=== PATIENT | female | born 1995 | race Two or more races ===

== ENCOUNTER 2024-12-09 09:49 | Emergency (ER) | payer MEDICAID, SELFPAY ==
[2024-12-09 10:17] VITALS: BMI 20.2
[2024-12-09 10:18] VITALS: BP 109/61; PULSE 81; RESP 19; TEMP 36.9; O2SAT 98
--- NOTE | 2024-12-09 10:22 | EKG_ITS ---
[facility] Test Date: 2024-12-09 Pat Name: LILLIAN JIMENEZ Department: Room: - Gender: Female [employer] Dean: : 1995 Requested By: Gómez Trinidad (HERNAN) Order Number: [id number] Reading MD: Gómez Trinidad (HERNAN) Measurements Intervals Cando Rate: 81 P: 78 ID: 140 QRS: 86 QRSD: 80 T: 46 QT: 343 QTc: 399 Interpretive Statements SINUS RHYTHM POSSIBLE RIGHT VENTRICULAR CONDUCTION DELAY [RSR (QR) IN V1/V2] No previous ECG available for comparison /store/S0/[id number]
--- NOTE | 2024-12-09 10:22 | PD.EDRME ---
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
--- NOTE | 2024-12-09 10:35 | EDNOTE_ITS ---
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 RANGEL MAIN ED EVALUATION: 29 year old female with no past medical history presents to the Emergency Department with complaint of fainting yesterday while standing. She states that her personal trainer was there and helped her so no fall or injuries reported. She saw her PCP today and had an abnormal EKG and was sent here for further evaluation. She reports heavy periods. She states that yesterday when she had her fainting episode she felt tachycardic and hot. Related Data Previous Rx's ?Medication ?Instructions ?Recorded doxycycline hyclate 100 mg capsule 100 mg PO Q12H #20 caps 03/14/18 ibuprofen 400 mg tablet 400 mg PO Q6H PRN pain #20 t abs 03/14/18 vitamin#30 30 mg iron-10 1 cap PO DAILY #30 c aps 12/09/24 mg iron-folic acid 1 mg-omg3 capsule Allergies Allergy/AdvReac Type Severity Reaction Status Date / Time Penicillins Allergy Unknown UNKNOWN Verified 03/14/18 17:02 Review of Systems Review of Systems Systems Reviewed: All systems reviewed, normal except as documented Past Medical History Social History SMOKING STATUS: Never smoker SUBSTANCE USE: does not use ALCOHOL: Never ED Exam Narrative Physical exam: GENERAL APPEARANCE: alert and oriented x 4, well-developed, well-nourished, no acute distress VITALS: All vitals were reviewed and the pulse ox is 98% on room air, which is normal according to my interpretation. HEENT: Normocephalic, atraumatic; pupils equal, round, reactive to light; EOMI; mucous membranes pink, moist; oropharynx clear NECK: Supple LUNGS: CTABL; no wheezes, no rales, no rhonchi HEART: Regular rate, regular rhythm; normal S1, S2; no murmurs ABDOMEN: non distended; normal BS; soft, no tenderness, no guarding, no rebound; no masses, no organomegaly, no hernia BACK: no CVA tenderness EXTREMITIES: atraumatic; no edema NEUROLOGIC: awake; alert and oriented x4; cranial nerves II-XII grossly intact; no focal sensory or motor deficits PSYCHIATRIC: appropriate mood and affect SKIN: warm, dry, normal color; no rashes Course Quality Measures none Orders Category Date Time Status EKG (ED ONLY) *Do not use* NOW Care 12/09/24 10:22 Completed EKG (ED Only) Stat Exams 12/09/24 10:22 Draft Beta HCG,Quantitative Stat Lab 12/09/24 10:46 Completed CBC Stat Lab 12/09/24 10:46 Completed Comprehensive Metabolic Panel Stat Lab 12/09/24 10:46 Completed Drug Screen,Urine Stat Lab 12/09/24 10:54 Completed HCG Qualitative,Urine Stat Lab 12/09/24 10:54 Completed TSH [Thyroid Stimulating Hormone] Stat Lab 12/09/24 10:46 Completed Troponin I Stat Lab 12/09/24 10:46 Completed Urinalysis Stat Lab 12/09/24 10:54 Completed Vital Signs Vital signs: Vital Signs Temperature 98.5 F 12/09/24 10:18 Pulse Rate 81 12/09/24 10:18 Respiratory Rate 19 12/09/24 10:18 Blood Pressure 109/61 12/09/24 10:18 Pulse Oximetry (%) 98 12/09/24 10:18 Oxygen Delivery Method Room Air 12/09/24 10:18 [facility] Patient data External records reviewed:: [facility] previous records (Reviewed last ED visit dated 03/14/18, discharged with the following: Cat bite) Clinical information provided by:: patient Social determinants that could affect healthcare access:: none Patient has the following chronic illnesses:: Denies any PMHx, surgeries, daily medications, or known allergies. How is presenting disease/condition affected by chronic disease/condition?: no chronic disease Evaluation data The following diagnostics were reviewed and interpreted by me:: lab results, radiology exam(s) and EKG tracing(s) Lab and/or radiology exams considered but not ordered:: none Interpretation Summary: EKG#1: EKG at 1025 hours. Interpreted by me: sinus rhythm, rate 81, no acute ischemic changes Medications Medications considered but not ordered:: none Medication administrations:: see above if any Consultations Consultation(s) initiated? (list below): No Diagnosis Differential Diagnosis ED Complaint MDM: dehydration, electrolyte imbalance, syncope Most likely diagnosis given after review of the tests above:: Near syncope Admission Indicated Admission indicated?: not indicated Explain why admission is indicated or not indicated:: Patient has no emergent abnormalities on his studies and can be managed on an outpatient basis. Admission Request Was there a request for admission?: No Disposition Plan Disposition Plan: Discharge Discharge Attestation Discharge Attestation: The patient and all family members were given an opportunity to ask questions and understood the discharge instructions. Discharge instructions specifically effects, indications for sooner follow up or return to the emergency department, and the expected course of current diagnosis. Patient condition: Stable Medical Decision Making MDM Narrative MDM Narrative: IJennifer am scribing for and in the presence of Dr. Rangel. Differential Diagnosis Differential Diagnosis: dehydration, electrolyte imbalance, syncope Lab Data 12/09/24 10:46 12/09/24 10:46 Labs: Lab Results 12/09/24 12/09/24 Range/Units 10:46 10:54 WBC 10.9 (3.6-11.0) Thou/mm3 RBC 4.68 (4.00-5.20) Miln/mm3 Hgb 13.9 (12.0-16.0) g/dL Hct 40.0 (36.0-46.0) % MCV 86 (80-100) fL MCH 29.7 (25.0-35.0) pg MCHC 34.8 (31.0-37.0) g/dl RDW Std Deviation 38.5 (36.4-46.3) fL Plt Count 296 (140-440) Thou/mm3 Neut % (Auto) 72 (37-80) % Lymph % (Auto) 20 (10-50) % [place] % (Auto) 6 (0-12) % Eos % (Auto) 1 (0-10) % Baso % (Auto) 1 (0-2.5) % Neut # (Auto) 7.8 H (1.8-7.7) Thou/mm3 Lymph # (Auto) 2.1 (1.0-4.8) Thou/mm3 [place] # (Auto) 0.7 (0.0-0.8) Thou/mm3 Eos # (Auto) 0.1 (0.0-0.5) Thou/mm3 Baso # (Auto) 0.1 (0.0-0.2) Thou/mm3 Immature Gran # (Auto) 0.04 H (0.00-0.00) Thou/mm3 Absolute Nucleated RBC 0.00 (0.00-0.00) Thou/mm3 Immature Gran % 0 (0-0) % Nucleated RBC % 0 (0) /100 WBC Sodium 135 L (136-145) mMol/L Potassium 3.6 (3.4-5.1) mMol/L Chloride 101 (98-107) mMol/L Carbon Dioxide 25.6 (20.0-31.0) mMol/L Anion Gap 8 (7-16) BUN 7 L (9-23) mg/dL Creatinine 0.6 (0.6-1.3) mg/dL Estim Creat Clear Calc 109.4 (>60) mL/min eGFR > 60 (60 - ) See Note BUN/Creatinine Ratio 12 (12-20) Ratio Glucose 89 (74-106) mg/dL Calculated Osmolality 267 L (275-295) Calcium 9.1 (8.3-10.6) mg/dL Corrected Calcium 9.1 (8.5-10.1) mg/dL Total Bilirubin 0.8 (0.3-1.2) mg/dL AST 17 (0-34) U/L ALT 13 (10-49) U/L Alkaline Phosphatase 40 L (46-116) U/L Troponin I < 0.002 (0.0-0.045) ng/mL Total Protein 7.4 (5.7-8.2) gm/dL Albumin 4.6 (3.5-5.0) gm/dL Globulin 2.8 (2.3-3.5) gm/dL Albumin/Globulin Ratio 1.6 (1.2-2.2) TSH 0.91 (0.55-4.78) uIU/mL Beta HCG, Quant [id number] (<5.0) mIU/mL Ur Collection Type Clean Catch Urine Color Lt-Yellow (Lt Yel-Yel) Urine Clarity Clear (Clear/Hazy) Urine pH 6.0 (5.0-7.0) Ur Specific Patten 1.020 (1.001-1.035) Urine Protein Negative (Neg - Trace) Urine Glucose (UA) Negative (Negative) Urine Ketones Negative (Negative) Urine Blood Negative (Negative) Urine Nitrite Negative (Negative) Urine Bilirubin Negative (Negative) Urine Urobilinogen (Auto) Negative (0.0-1.0) mg/dL Ur Leukocyte Esterase Negative (Negative) Urine RBC 2 (0-3) /hpf Urine WBC 1 (0-5) /hpf Ur Squamous Epith Cells 2 (0-5) /hpf Urine Bacteria None (None) Urine HCG, Qual Positive Urine Opiates Screen Negative (Negative) Urine Fentanyl Screen Negative (Negative) Ur Barbiturates Screen Negative (Negative) U Amphetamin/Meth Scrn Negative (Negative) U Benzodiazepines Scrn Negative (Negative) U Cocaine Metab Screen Negative (Negative) U Marijuana (THC) Screen Negative (Negative) Discharge Plan Plan Patient Disposition: HOME (Self Care) Prescriptions/Referrals Prescriptions/Med Rec: New PNV #[id number] 30 mg iron-10 mg iron-1 mg capsule 1 cap PO DAILY Qty: 30 0RF No Action doxycycline hyclate 100 mg capsule 100 mg PO Q12H Qty: 20 0RF ibuprofen 400 mg tablet 400 mg PO Q6H PRN (Reason: pain) Qty: 20 0RF Referrals: Bret Norwood MD [Primary Care Provider] - In 1 week Problem List Clinical Impression: Near syncope, Patient/Caregiver Discharge Instructions Education Materials: What Is Care?, Your First Trimester ..., First Trimester Additional Instructions: Take vitamins with folic acid daily. Follow up for referral to OB for care. Print Language: Azeri Stand Alone Forms: Shaniqua Award Info., Patient Portal Info Letter
[2024-12-09 10:58] LABS: Collection Type, Urine Clean Catch
[2024-12-09 11:03] LABS: Bilirubin,Urine Negative (Negative); Blood,Urine Negative (Negative); Clarity,Urine Clear (Clear/Hazy); Color,Urine Lt-Yellow (Lt Yel-Yel); Glucose, Urine Negative (Negative); Ketones,Urine Negative (Negative); Leukocyte Esterase,Urine Negative (Negative); Nitrite,Urine Negative (Negative); Protein,Urine Negative (Neg - Trace); RBC,Urine 2 /hpf (0-3); Squamous Epithelial Cell,Urine 2 /hpf (0-5); Urobilinogen,Urine Negative mg/dL (0.0-1.0); WBC,Urine 1 /hpf (0-5)
[2024-12-09 11:07] LABS: Basophils # (Auto) 0.1 Thou/mm3 (0.0-0.2); Basophils % (Auto) 1 % (0-2.5); Eosinophils # (Auto) 0.1 Thou/mm3 (0.0-0.5); Eosinophils % (Auto) 1 % (0-10); Hemoglobin 13.9 g/dL (12.0-16.0); Immature Granulocytes % (Auto) 0 % (0-0); Immature Granulocytes Auto 0.04 Thou/mm3 (0.00-0.00); Lymphocytes # (Auto) 2.1 Thou/mm3 (1.0-4.8); Lymphocytes % (Auto) 20 % (10-50); Mean Corpuscular HGB Conc 34.8 g/dl (31.0-37.0); Mean Corpuscular Hemoglobin 29.7 pg (25.0-35.0); Mean Corpuscular Volume 86 fL (80-100); Monocytes # (Auto) 0.7 Thou/mm3 (0.0-0.8); Monocytes % (Auto) 6 % (0-12); Neutrophils # (Auto) 7.8 Thou/mm3 (1.8-7.7); Neutrophils % (Auto) 72 % (37-80); Nucleated Red Blood Cell % 0 /100 WBC (0); Platelet Count 296 Thou/mm3 (140-440); RDW Standard Deviation 38.5 fL (36.4-46.3); Red Blood Count 4.68 Miln/mm3 (4.00-5.20); White Blood Count 10.9 Thou/mm3 (3.6-11.0)
[2024-12-09 11:07] LABS: HCG Qualitative,Urine Positive
[2024-12-09 11:09] LABS: Amphetamine/Methamp Scrn,U Negative (Negative); Barbiturate Screen,Urine Negative (Negative); Benzodiazepines Screen,Urine Negative (Negative); Benzoylecgonine Screen, Ur Negative (Negative); Fentanyl Screen,Urine Negative (Negative); Opiate Screen,Urine Negative (Negative); THC Screen,Urine Negative (Negative)
[2024-12-09 11:38] LABS: Alanine Aminotransferase 13 U/L (10-49); Albumin, Serum 4.6 gm/dL (3.5-5.0); Albumin/Globulin Ratio 1.6 (1.2-2.2); Alkaline Phosphatase 40 U/L (46-116); Anion Gap 8 (7-16); Aspartate Amino Transferase 17 U/L (0-34); BUN/Creatinine Ratio 12 Ratio (12-20); Bilirubin,Total 0.8 mg/dL (0.3-1.2); Blood Urea Nitrogen 7 mg/dL (9-23); Calcium 9.1 mg/dL (8.3-10.6); Calcium (Corrected) 9.1 mg/dL (8.5-10.1); Carbon Dioxide 25.6 mMol/L (20.0-31.0); Chloride 101 mMol/L (98-107); Creatinine (Component) 0.6 mg/dL (0.6-1.3); Estimated Creatinine Clearance 109.4 mL/min (>60); Globulin 2.8 gm/dL (2.3-3.5); Glucose 89 mg/dL (74-106); Osmolality,Calculated 267 (275-295); Potassium 3.6 mMol/L (3.4-5.1); Sodium 135 mMol/L (136-145); Thyroid Stimulating Hormone 0.91 uIU/mL (0.55-4.78); Total Protein 7.4 gm/dL (5.7-8.2); Troponin I < 0.002 ng/mL (0.0-0.045); eGFR > 60 See Note
[2024-12-09 13:22] LABS: Beta HCG,Quantitative 163642 mIU/mL (<5.0)
== END 2024-12-09 14:58 | disposition home or self-care (01) ==
PROVIDERS: Nurse Practitioner Primary Care; Emergency Provider Emergency Medicine; PCP Family Medicine
DX: R55 Syncope and collapse (principal); Z33.1 Pregnant state, incidental
CPT/HCPCS: 36415; 80053; 80307; 81001; 81025; 84443; 84484; 84702; 85025; 93005; 99283

== ENCOUNTER → 2025-01-21 | Outpatient (CLI) | payer MEDICAID, SELFPAY ==
[2025-01-21 13:20] LABS: Basophils # (Auto) 0.1 Thou/mm3 (0.0-0.2); Basophils % (Auto) 1 % (0-2.5); Eosinophils # (Auto) 0.1 Thou/mm3 (0.0-0.5); Eosinophils % (Auto) 1 % (0-10); Hemoglobin 11.9 g/dL (12.0-16.0); Immature Granulocytes % (Auto) 0 % (0-0); Immature Granulocytes Auto 0.04 Thou/mm3 (0.00-0.00); Lymphocytes # (Auto) 1.8 Thou/mm3 (1.0-4.8); Lymphocytes % (Auto) 18 % (10-50); Mean Corpuscular Hemoglobin 30.9 pg (25.0-35.0); Mean Corpuscular Volume 88 fL (80-100); Monocytes # (Auto) 0.6 Thou/mm3 (0.0-0.8); Monocytes % (Auto) 6 % (0-12); Neutrophils # (Auto) 7.5 Thou/mm3 (1.8-7.7); Neutrophils % (Auto) 75 % (37-80); Nucleated Red Blood Cell % 0 /100 WBC (0); Platelet Count 211 Thou/mm3 (140-440); Red Blood Count 3.85 Miln/mm3 (4.00-5.20)
[2025-01-21 13:31] LABS: Glucose Estimated Average 94 mg/dL (80-131); Hemoglobin A1C 4.9 % Hgb (4.8-6.0)
[2025-01-21 13:39] LABS: Thyroid Stimulating Hormone 1.04 uIU/mL (0.55-4.78)
[2025-01-21 14:03] LABS: Syphilis Nonreactive (Nonreactive)
[2025-01-21 14:10] LABS: Hepatitis B Surface Antigen Non Reactive (Non React); Hepatitis C Antibody Non Reactive (Non React); Rubella, IgG Antibody Reactive (Immune)
[2025-01-21 16:01] LABS: Chlamydia trachomatis PCR Negative (Not Detect); Neisseria Gonorrhoeae DNA PCR Negative (Not Detect); Trichomonas Negative (Negative)
== END | disposition home or self-care (01) ==
LOC: COPL 12:29
PROVIDERS: PCP Family Medicine; Referring Provider Obstetrics & Gynecology; Visit Provider Obstetrics & Gynecology
DX: Z34.90 Encounter for supervision of normal pregnancy, unspecified, unspecified trimester (principal); Z3A.11 11 weeks gestation of pregnancy
CPT/HCPCS: 36415; 83036; 84443; 85025; 86762; 86780; 86803; 86850; 86900; 86901; 87086; 87340; 87491; 87591; 87661

== ENCOUNTER 2025-02-04 09:21 | Outpatient (AMB) | payer MEDICAID, SELFPAY ==
[2025-02-04 09:29] VITALS: BP 109/69; PULSE 99; RESP 17; TEMP 36.6; O2SAT 98; BMI 21.8
--- NOTE | 2025-02-04 09:29 | OBCLNT_ITS ---
Vital Signs 02/04/25 09:29 Height 1.57 m Height Method Stated Weight 54.204 kg Weight Measurement Method Standing Scale BMI 21.8 BP 109/69 Blood Pressure Source Automatic Cuff Blood Pressure Location Right Upper Arm Position Supine Respiration 17 Pulse 99 Pulse Source Monitor Temp 97.9 F Temp Source Temporal Artery Scan Pulse Oximetry (%) 98 Oxygen Delivery Method Room Air Allergies/Home Meds Allergies & Medications Allergies Penicillins Allergy (Mild, Verified 02/04/25 09:30) HIVES Medication Reconciliation vitamin#30 30 mg iron-10 mg iron-folic acid 1 mg-omg3 capsule 1 cap PO DAILY #30 caps 12/09/24 [Rx Confirmed 02/04/25] Intake Visit Data Collection New Patient or Established: Established Patient (seen at [facility] within 3 years) Reason for Visit:: OBC Seen by Clinical Staff ONLY (RN/MA): No Fire Prevention Research Engineer Required: No Do You Feel Safe at Home: Yes Authorities Contacted: N/A PCP or OBGYN visit in last 3 months: Yes Date of Last PCP or OBGYN visit: 01/07/25 Hx Now: Yes Are you currently on any form of Control: No Pain Present Currently: No Pain Scale Used: Duke-Stone/Numerical Pain scale:: 0 Smoking Status Smoking Status: Never smoker Questionnaires Covid-19 Vaccine Questionnaire Has patient been vacinated for Covid-19 Have you been vacinated for Covid-19: Yes PHQ-9 PHQ-2 Over the last 2 weeks, how often have you been bothered by any of the following problems? 1. Little interest or pleasure in doing things: not at all 2. Feeling down, depressed, or hopeless: not at all Total score: 0 PHQ-9 3. Trouble falling or staying asleep, or sleeping too much: Not at all 4. Feeling tired or having little energy: Not at all 5. Poor appetite or overeating: Not at all 6. Feeling bad about yourself - or that you are a failure or have let yourself or your family down: Not at all 7. Trouble concentrating on things, such as reading the newspaper or watching television: Not at all 8. Moving or speaking so slowly that other people could have noticed? - Or the opposite - being so fidgety or restless that you have been moving around a lot more than usual: not at all 9. Thoughts that you would be better off or of hurting yourself in some way: Not at all Total score: 0 If you checked off any problems, how difficult have these problems made it for you to do your work, take care of things at home, or get along with other people?: not difficult at all Source: Developed by Drs. Rd Xavier, Moni Moody, Mariano Bridges and colleagues, with an educational thalia from [employer]. Depression screen completed yes Social History Living Situation History Lives With: Family Housing: House Housing Other:: Father of the baby 29 Derrick. 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 OB Ultrasound Indication Indication: The patient is a 29 y/o LMP 10/19/24 EDC 07/26/25. Care OB Visit Log OB Flowsheet Initial Weight: 50.49 kg Date -?-?-?-?-?-?-?-?-?-?-?-?- EGA Weight BP Alb Glu CTX Pres Fundal ht FHR Mov Dilation Station Effacement Hx Notes Visit Note 01/07/25 -?-?-?-?-?-?-?-?-?-?-?-?- 11w 3d 50.49 kg (+0 g) 109/61 150 New OB visit. Protein and glucose negative in the urine 02/04/25 -?-?-?-?-?-?-?-?-?-?-?-?- 15w 3d 54.204 kg (+3714.288 g) 109/69 150 No FM Declines NIPT. SS [facility] Calculator Estimated Delivery Date Method Current WG Current Estimate 07/26/25 Ultrasound #1 15w 3d Other Estimates 07/26/25 LMP (Certain) 15w 3d Comments: LMP 10/19/2024. EDC 07/26/2025. 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 Expected Delivery Route/Plan Anticipate Office Procedures OB Clinic LOC & Office Proc's Nursing/Assessment Patient Status: Established Patient OB Clinic Nursing Assessment: Medication Reconciliation, Update PMH in EMR and Vital Signs OB Clinic Coordination of Care: Complex Care and Chronic Disease 1-5, Consent,records obtained, informed consent, Education Simp Pt/Fam, Lab and Imaging orders and Staff clarify orders Special Needs: Heart tones Established Patient Charge Established Patient Point Assignment: 130 Established Patient Point Charge: EP Level 4 (120-155) Assessment & Plan Diagnosis / Problem List (1) : Status: Acute Qualifiers: Weeks of gestation: 15 weeks Qualified Code(s): Z3A.15 - 15 weeks gestation of Assessment and Plan: Declines NIPT. Follow up in 4 weeks
== END 2025-02-04 10:19 | disposition home or self-care (01) ==
LOC: HODSOBC 09:21
PROVIDERS: PCP Family Medicine; Referring Provider Family Medicine; Supervising Provider Obstetrics & Gynecology; Visit Provider Obstetrics & Gynecology
DX: Z34.02 Encounter for supervision of normal first pregnancy, second trimester (principal); Z3A.15 15 weeks gestation of pregnancy
CPT/HCPCS: 99214; G0463

== ENCOUNTER 2025-03-03 11:28 | Outpatient (AMB) | payer MEDICAID, SELFPAY ==
[2025-03-03 11:48] VITALS: BP 111/69; PULSE 90; RESP 18; TEMP 36.8; O2SAT 97; BMI 23.4
--- NOTE | 2025-03-03 11:48 | AMB.OBVISIT ---
Vital Signs 03/03/25 11:48 Height 1.57 m Height Method Stated Weight 57.776 kg Weight Measurement Method Standing Scale BMI 23.4 BP 111/69 Blood Pressure Source Automatic Cuff Blood Pressure Location Right Upper Arm Position Sitting Respiration 18 Pulse 90 Pulse Source Monitor Temp 98.2 F Temp Source Oral Pulse Oximetry (%) 97 Oxygen Delivery Method Room Air Allergies/Home Meds Allergies & Medications Allergies Penicillins Allergy (Mild, Verified 03/03/25 11:50) HIVES Medication Reconciliation vitamin#30 30 mg iron-10 mg iron-folic acid 1 mg-omg3 capsule 1 cap PO DAILY #30 caps 12/09/24 [Rx Confirmed 03/03/25] Intake Visit Data Collection New Patient or Established: Established Patient (seen at [facility] within 3 years) Reason for Visit:: CARE Seen by Clinical Staff ONLY (RN/MA): No Court Assistant Required: No Do You Feel Safe at Home: Yes Authorities Contacted: N/A PCP or OBGYN visit in last 3 months: Yes Hx Now: Yes Are you currently on any form of Control: No Pain Present Currently: No Pain Scale Used: Duke-Stone/Numerical Pain scale:: 0 Smoking Status Smoking Status: Never smoker Questionnaires Covid-19 Vaccine Questionnaire Has patient been vacinated for Covid-19 Have you been vacinated for Covid-19: Yes PHQ-9 PHQ-2 Over the last 2 weeks, how often have you been bothered by any of the following problems? 1. Little interest or pleasure in doing things: not at all 2. Feeling down, depressed, or hopeless: not at all Total score: 0 PHQ-9 3. Trouble falling or staying asleep, or sleeping too much: Not at all 4. Feeling tired or having little energy: Not at all 5. Poor appetite or overeating: Not at all 6. Feeling bad about yourself - or that you are a failure or have let yourself or your family down: Not at all 7. Trouble concentrating on things, such as reading the newspaper or watching television: Not at all 8. Moving or speaking so slowly that other people could have noticed? - Or the opposite - being so fidgety or restless that you have been moving around a lot more than usual: not at all 9. Thoughts that you would be better off or of hurting yourself in some way: Not at all Source: Developed by Drs. Rd Xavier, Moni Moody, Mariano Bridges and colleagues, with an educational thalia from [employer]. Depression screen completed yes Social History Living Situation History Lives With: Family Housing: House Housing Other:: Father of the baby 29 Derrick. Patient going to school to be [employer] Tobacco History Smoking Status: Never smoker Second Hand Smoke Exposure: No Alcohol History Alcohol Intake: Never Domestic Abuse History Do You Feel Safe at Home: Yes Care OB Visit Log OB Flowsheet Initial Weight: 50.49 kg Date <del>?</del> EGA Weight BP Alb Glu CTX Pres Fundal ht FHR Mov Dilation Station Effacement Hx Notes Visit Note 01/07/25 <del>?</del> 11w 3d 50.49 kg (+0 g) 109/61 150 New OB visit. Protein and glucose negative in the urine 02/04/25 <del>?</del> 15w 3d 54.204 kg (+3714.288 g) 109/69 150 No FM [facility] <del>?</del> 19w 2d 57.776 kg (+7286.328 g) 111/69 20 147 absent No loss of fluids or vaginal bleeding minimal flutters. Structural survey ordered for [facility] Calculator Estimated Delivery Date Method Current WG Current Estimate 07/26/25 Ultrasound #1 19w 2d Other Estimates 07/26/25 LMP (Certain) 19w 2d Expected Delivery Route/Plan 29-year-old G1, P0 Anticipate Specific Issue/Plans labs performed. A positive/antibody negative/rubella immune/RPR nonreactive/HIV negative/hepatitis B surface antigen negative/hep C negative/declined NIPT/ Pap within normal limits/ GC negative /Chlamydia negative/ urine culture negative All labs done at [facility] Office Procedures OB Clinic LOC & Office Proc's Nursing/Assessment Patient Status: Established Patient OB Clinic Nursing Assessment: Medication Reconciliation, Update PMH in EMR and Vital Signs OB Clinic Coordination of Care: Complex Care and Chronic Disease 1-5, Consent,records obtained, informed consent, Education Simp Pt/Fam, Lab and Imaging orders, Results/Orders obtained and Staff clarify orders Special Needs: Heart tones Established Patient Charge Established Patient Point Assignment: 135 Established Patient Point Charge: EP Level 4 (120-155) Assessment & Plan Diagnosis / Problem List (1) : Status: Acute Qualifiers: Weeks of gestation: 20 weeks Qualified Code(s): Z3A.20 - 20 weeks gestation of
== END 2025-03-03 12:06 | disposition home or self-care (01) ==
LOC: HODSOBC 11:28
PROVIDERS: PCP Family Medicine; Referring Provider Family Medicine; Supervising Provider Obstetrics & Gynecology; Visit Provider Obstetrics & Gynecology
DX: Z34.02 Encounter for supervision of normal first pregnancy, second trimester (principal); Z3A.19 19 weeks gestation of pregnancy; Z88.0 Allergy status to penicillin
CPT/HCPCS: 99214; G0463

== ENCOUNTER → 2025-04-23 | Outpatient (CLI) | payer MEDICAID, SELFPAY ==
--- NOTE | 2025-04-23 11:30 | XR_ITS ---
Examination: Complete OB ultrasound greater than 14 weeks Date and time of exam: April 23, 2025 1115 hours INDICATIONS: Supervision of otherwise normal Findings: Viable intrauterine single fetus with single amniotic sac presentation cephalic Cardiac motion 141 BPM Placenta anterior grade 2 Umbilical cord insertion seen Amniotic fluid index 12.3 cm Cervix 5.5 cm Right ovary 3.2 cm arterial flow Left ovary obscured by bowel gas. Composite estimated gestational age based on BPD, head circumference, abdominal circumference, femur length is 27 weeks 1 day Estimated weight 974 g. Survey of intracranial anatomy, spinal anatomy, abdominal anatomy, four-chamber heart performed with no abnormalities identified. Impression: Viable intrauterine gestation cephalic presentation.
== END | disposition home or self-care (01) ==
LOC: CDIM 11:04
PROVIDERS: Referring Provider Obstetrics & Gynecology; Visit Provider Obstetrics & Gynecology
DX: Z34.92 Encounter for supervision of normal pregnancy, unspecified, second trimester (principal); Z3A.27 27 weeks gestation of pregnancy
CPT/HCPCS: 76805

== ENCOUNTER 2025-04-29 10:27 | Outpatient (AMB) | payer MEDICAID, SELFPAY ==
[2025-04-29 10:55] VITALS: BP 113/72; PULSE 86; RESP 18; TEMP 36.2; O2SAT 98; BMI 25.8
--- NOTE | 2025-04-29 10:55 | OBCLNT_ITS ---
Vital Signs 04/29/25 10:55 Height 1.57 m Height Method Stated Weight 63.673 kg Weight Measurement Method Standing Scale BMI 25.8 BP 113/72 Blood Pressure Source Automatic Cuff Blood Pressure Location Left Upper Arm Position Sitting Respiration 18 Pulse 86 Pulse Source Monitor Temp 97.2 F Temp Source Oral Pulse Oximetry (%) 98 Oxygen Delivery Method Room Air Allergies/Home Meds Allergies & Medications Allergies Penicillins Allergy (Mild, Verified 04/29/25 10:56) HIVES Medication Reconciliation vitamins 30 30 mg iron-10 mg iron-folic acid 1 mg-om3 capsule 1 cap PO DAILY #30 caps 12/09/24 [Rx Confirmed 04/29/25] Intake Visit Data Collection New Patient or Established: New Patient (never been to [facility]) Reason for Visit:: OBC Seen by Clinical Staff ONLY (RN/MA): No 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 1. Little interest or pleasure in doing things: not at all 2. Feeling down, depressed, or hopeless: not at all Total score: 0 PHQ-9 3. Trouble falling or staying asleep, or sleeping too much: Not at all 4. Feeling tired or having little energy: Not at all 5. Poor appetite or overeating: Not at all 6. Feeling bad about yourself - or that you are a failure or have let yourself or your family down: Not at all 7. Trouble concentrating on things, such as reading the newspaper or watching television: Not at all 8. Moving or speaking so slowly that other people could have noticed? - Or the opposite - being so fidgety or restless that you have been moving around a lot more than usual: not at all 9. Thoughts that you would be better off or of hurting yourself in some way: Not at all Total score: 0 If you checked off any problems, how difficult have these problems made it for you to do your work, take care of things at home, or get along with other people?: not difficult at all Source: Developed by Drs. Rd Xavier, Moni Moody, Mariano Bridges and colleagues, with an educational thalia from [email or web address]. Depression screen completed yes Social History Living Situation History Marital Status: Lives With: Family Housing: House Housing Other:: Father of the baby 29 Derrick. Patient going to school to be [employer] Tobacco History Smoking Status: Never smoker Second Hand Smoke Exposure: No Alcohol History Alcohol Intake: Never Domestic Abuse History Do You Feel Safe at Home: Yes Care OB Visit Log OB Flowsheet Initial Weight: 50.49 kg Date -?-?-?-?-?-?-?-?-?-?-?-?- EGA Weight BP Alb Glu CTX Pres Fundal ht FHR Mov Dilation Station Effacement Hx Notes Visit Note 01/07/25 -?-?-?-?-?-?-?-?-?-?-?-?- 11w 3d 50.49 kg (+0 g) 109/61 150 New OB visit. Protein and glucose negative in the urine 02/04/25 -?-?-?-?-?-?-?-?-?-?-?-?- 15w 3d 54.204 kg (+3714.288 g) 109/69 150 No FM Declines NIPT. [facility] 03/03/25 -?-?-?-?-?-?-?-?-?-?-?-?- 19w 2d 57.776 kg (+7286.328 g) 111/69 20 147 absent No loss of fluids or vaginal bleeding minimal flutters. Structural anali vey ordered for [facility] 04/01/25 -?-?-?-?-?-?-?-?-?-?-?-?- 23w 3d 61.745 kg (+11.255 kg) 105/67 23 134 active No contractions loss of fluid or bleeding. She feels good movement. Patient is working 2 jobs one at [employer] and the other at [employer] 04/29/25 -?-?-?-?-?-?-?-?-?-?-?-?- 27w 3d 63.673 kg (+13.183 kg) 113/72 28 145 active No contractions or loss of fluids good movement GCT today MERLYN Calculator Estimated Delivery Date Method Current WG Current Estimate 07/26/25 Ultrasound #1 28w 1d Other Estimates 07/26/25 LMP (Certain) 28w 1d Expected Delivery Route/Plan 29-year-old G1, P0 Anticipate Specific Issue/Plans labs performed. A +/antibody negative/rubella immune/RPR nonreactive/HIV negative/hepatitis B surface antigen negative/hep C negative/declined NIPT/ Pap within normal limits/ GC negative /Chlamydia negative/ urine culture negative All labs done at [facility] Notes Visit Date: 04/29/25 Last Updated by: Merissa Malin (OB Clinic)MD Had structural survey at [facility] 04/23 and normal. Glucose challenge test ordered from [facility] today. Visit Date: 04/01/25 Last Updated by: Merissa Malin (OB Clinic)MD Structural survey not done yet. It was ordered but not done. Ordered for [facility] Office Procedures OB Clinic LOC & Office Proc's Nursing/Assessment Patient Status: Established Patient OB Clinic Nursing Assessment: Medication Reconciliation, Update PMH in EMR and Vital Signs OB Clinic Coordination of Care: Education Complex Pt/Fam, Consent,records obtained, informed consent, Lab and Imaging orders, Results/Orders obtained and Staff clarify orders Special Needs: Heart tones Established Patient Charge Established Patient Point Assignment: 115 Established Patient Point Charge: EP Level 3 (80-115) Assessment & Plan Diagnosis / Problem List (1) : Status: Acute Qualifiers: Weeks of gestation: 27 weeks Qualified Code(s): Z3A.27 - 27 weeks gestation of Plan: Glucose challenge test today. Additional Plan Follow Up: 4 Weeks
== END 2025-04-29 11:30 | disposition home or self-care (01) ==
LOC: HODSOBC 10:27
PROVIDERS: PCP Family Medicine; Referring Provider Family Medicine; Supervising Provider Obstetrics & Gynecology; Visit Provider Obstetrics & Gynecology
DX: Z34.02 Encounter for supervision of normal first pregnancy, second trimester (principal); Z3A.27 27 weeks gestation of pregnancy; Z88.0 Allergy status to penicillin
CPT/HCPCS: 99213; G0463

== ENCOUNTER 2025-05-27 09:02 | Outpatient (AMB) | payer MEDICAID, SELFPAY ==
[2025-05-27 09:07] VITALS: BP 106/65; PULSE 95; RESP 17; TEMP 36.3; O2SAT 98; BMI 27.1
--- NOTE | 2025-05-27 09:07 | OBCLNT_ITS ---
Vital Signs 05/27/25 09:07 Height 1.57 m Height Method Stated Weight 66.791 kg Weight Measurement Method Standing Scale BMI 27.1 BP 106/65 Blood Pressure Source Automatic Cuff Blood Pressure Location Right Upper Arm Position Sitting Respiration 17 Pulse 95 Pulse Source Monitor Temp 97.3 F Temp Source Temporal Artery Scan Pulse Oximetry (%) 98 Oxygen Delivery Method Room Air Allergies/Home Meds Allergies & Medications Allergies Penicillins Allergy (Mild, Verified 04/29/25 10:56) HIVES Intake Visit Data Collection New Patient or Established: Established Patient (seen at [facility] within 3 years) Reason for Visit:: OBC 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 1. Little interest or pleasure in doing things: not at all PHQ-9 8. Moving or speaking so slowly that other people could have noticed? - Or the opposite - being so fidgety or restless that you have been moving around a lot more than usual: not at all Source: Developed by Drs. Rd Xavier, Moni Moody, Mariano Bridges and colleagues, with an educational thalia from [employer]. Social History Living Situation History Lives With: Family Housing: House Housing Other:: Father of the baby 29 Derrick. Patient going to school to be [employer] Tobacco History Smoking Status: Never smoker Second Hand Smoke Exposure: No Alcohol History Alcohol Intake: Never Domestic Abuse History Do You Feel Safe at Home: Yes Care OB Visit Log OB Flowsheet Initial Weight: 50.49 kg Date -?-?-?-?-?-?-?-?-?-?-?-?- EGA Weight BP Alb Glu CTX Pres Fundal ht FHR Mov Dilation Station Effacement Hx Notes Visit Note 01/07/25 -?-?-?-?-?-?-?-?-?-?-?-?- 11w 3d 50.49 kg (+0 g) 109/61 150 New OB visit. Protein and glucose negative in the urine 02/04/25 -?-?-?-?-?-?-?-?-?-?-?-?- 15w 3d 54.204 kg (+3714.288 g) 109/69 150 No FM Declines NIPT. [facility] 03/03/25 -?-?-?-?-?-?-?-?-?-?-?-?- 19w 2d 57.776 kg (+7286.328 g) 111/69 20 147 absent No loss of fluids or vaginal bleeding minimal flutters. Structural anali vey ordered for [facility] 04/01/25 -?-?-?-?-?-?-?-?-?-?-?-?- 23w 3d 61.745 kg (+11.255 kg) 105/67 23 134 active No contractions loss of fluid or bleeding. She feels good movement. Patient is working 2 jobs one at [employer] and the other at [email or web address] 04/29/25 -?-?-?-?-?-?-?-?-?-?-?-?- 27w 3d 63.673 kg (+13.183 kg) 113/72 28 145 active No contractions or loss of fluids good movement GCT today 05/27/25 -?-?-?-?-?-?-?-?-?-?-?-?- 31w 3d 66.791 kg (+16.301 kg) 106/65 31 134 active No contractions loss of fluids or vaginal bleeding Passed glucose challenge test 139. MERLYN Calculator Estimated Delivery Date Method Current WG Current Estimate 07/26/25 Ultrasound #1 31w 3d Other Estimates 07/26/25 LMP (Certain) 31w 3d Expected Delivery Route/Plan 29-year-old G1, P0 Anticipate Specific Issue/Plans labs performed. A +/antibody negative/rubella immune/RPR nonreactive/HIV negative/hepatitis B surface antigen negative/hep C negative/declined NIPT/ Pap within normal limits/ GC negative /Chlamydia negative/ urine culture negative All labs done at [facility] 1 hour glucose 139 RPR negative at 28 weeks hemoglobin 11.9. Notes Visit Date: 05/27/25 Last Updated by: Merissa Malin (OB Clinic)MD Discussed labor. Patient will go with flow. Discussed pain control option including natural epidural or IV pain medication. Reviewed 1 hour glucose 139 hemoglobin 11.9 RPR negative. Father the baby present today. Follow-up in 2 weeks. Visit Date: 04/29/25 Last Updated by: Merissa Malin (OB Clinic)MD Had structural survey at [facility] 04/23 and normal. Glucose challenge test ordered from [facility] today. Visit Date: 04/01/25 Last Updated by: Merissa Malin (OB Clinic)MD Structural survey not done yet. It was ordered but not done. Ordered for [facility] Office Procedures OBC Clinic LOC & Office Proc's Nursing/Assessment Patient Status: Established Patient OB Clinic Nursing Assessment: Medication Reconciliation, Update PMH in EMR and Vital Signs OB Clinic Coordination of Care: Complex Care and Chronic Disease 1-5, Education Complex Pt/Fam, Consent,records obtained, informed consent, 1 Ins Authorization and Lab and Imaging orders Special Needs: Heart tones Established Patient Charge Established Patient Point Assignment: 140 Established Patient Point Charge: EP Level 4 (120-155) Assessment & Plan Diagnosis / Problem List (1) : Status: Acute Qualifiers: Weeks of gestation: 31 weeks Qualified Code(s): Z3A.31 - 31 weeks gestation of
== END 2025-05-27 09:57 | disposition home or self-care (01) ==
LOC: HODSOBC 09:02
PROVIDERS: Supervising Provider Obstetrics & Gynecology; Visit Provider Obstetrics & Gynecology
DX: Z34.03 Encounter for supervision of normal first pregnancy, third trimester (principal); Z3A.31 31 weeks gestation of pregnancy; Z88.0 Allergy status to penicillin
CPT/HCPCS: 99214; G0463

== ENCOUNTER → 2025-06-10 15:30 | Outpatient (AMB) | payer MEDICAID, SELFPAY ==
[2025-06-10 15:39] VITALS: BP 106/68; PULSE 81; RESP 17; TEMP 36.7; O2SAT 97; BMI 27.3
--- NOTE | 2025-06-10 15:39 | AMB.OBVISIT ---
Vital Signs 06/10/25 15:39 Height 1.57 m Height Method Stated Weight 67.302 kg Weight Measurement Method Standing Scale BMI 27.3 BP 106/68 Blood Pressure Source Automatic Cuff Blood Pressure Location Right Upper Arm Position Sitting Respiration 17 Pulse 81 Pulse Source Monitor Temp 98.1 F Temp Source Temporal Artery Scan Pulse Oximetry (%) 97 Oxygen Delivery Method Room Air Allergies/Home Meds Allergies & Medications Allergies Penicillins Allergy (Mild, Verified 06/10/25 15:41) HIVES Medication Reconciliation vitamins 30 30 mg iron-10 mg iron-folic acid 1 mg-om3 capsule 1 cap PO DAILY #30 caps 12/09/24 [Rx Confirmed 06/10/25] Intake Visit Data Collection New Patient or Established: Established Patient (seen at [facility] within 3 years) Reason for Visit:: OBC Seen by Clinical Staff ONLY (RN/MA): No 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 1. Little interest or pleasure in doing things: not at all 2. Feeling down, depressed, or hopeless: not at all Total score: 0 PHQ-9 3. Trouble falling or staying asleep, or sleeping too much: Not at all 4. Feeling tired or having little energy: Not at all 5. Poor appetite or overeating: Not at all 6. Feeling bad about yourself - or that you are a failure or have let yourself or your family down: Not at all 7. Trouble concentrating on things, such as reading the newspaper or watching television: Not at all 8. Moving or speaking so slowly that other people could have noticed? - Or the opposite - being so fidgety or restless that you have been moving around a lot more than usual: not at all 9. Thoughts that you would be better off or of hurting yourself in some way: Not at all Total score: 0 If you checked off any problems, how difficult have these problems made it for you to do your work, take care of things at home, or get along with other people?: not difficult at all Source: Developed by Drs. Rd Xavier, Moni Moody, Mariano Bridges and colleagues, with an educational thalia from [employer]. Depression screen completed yes Social History Living Situation History Marital Status: Lives With: Family Housing: House Housing Other:: Father of the baby 29 Derrick. Patient going to school to be [email or web address] Tobacco History Smoking Status: Never smoker Second Hand Smoke Exposure: No Alcohol History Alcohol Intake: Never Domestic Abuse History Do You Feel Safe at Home: Yes Care OB Visit Log OB Flowsheet Initial Weight: 50.49 kg Date <del>?</del> EGA Weight BP Alb Glu CTX Pres Fundal ht FHR Mov Dilation Station Effacement Hx Notes Visit Note 01/07/25 <del>?</del> 11w 3d 50.49 kg (+0 g) 109/61 150 New OB visit. Protein and glucose negative in the urine 02/04/25 <del>?</del> 15w 3d 54.204 kg (+3714.288 g) 109/69 150 No FM Declines NIPT. SS [facility] 03/03/25 <del>?</del> 19w 2d 57.776 kg (+7286.328 g) 111/69 20 147 absent No loss of fluids or vaginal bleeding minimal flutters. Structural survey ordered for [facility] 04/01/25 <del>?</del> 23w 3d 61.745 kg (+11.255 kg) 105/67 23 134 active No contractions loss of fluid or bleeding. She feels good movement. Patient is working 2 jobs one at [employer] and the other at [employer] 04/29/25 <del>?</del> 27w 3d 63.673 kg (+13.183 kg) 113/72 28 145 active No contractions or loss of fluids good movement GCT today 05/27/25 <del>?</del> 31w 3d 66.791 kg (+16.301 kg) 106/65 31 134 active No contractions loss of fluids or vaginal bleeding Passed glucose challenge test 139. 06/10/25 <del>?</del> 33w 3d 67.302 kg (+16.812 kg) 106/68 33 145 active Good movement no contractions no loss of fluids Discussed labor and recommended influenza and Tdap immunization. MERLYN Calculator Estimated Delivery Date Method Current WG Current Estimate 07/26/25 Ultrasound #1 33w 3d Other Estimates 07/26/25 LMP (Certain) 33w 3d Expected Delivery Route/Plan 29-year-old G1, P0 Anticipate Specific Issue/Plans labs performed. A +/antibody negative/rubella immune/RPR nonreactive/HIV negative/hepatitis B surface antigen negative/hep C negative/declined NIPT/ Pap within normal limits/ GC negative /Chlamydia negative/ urine culture negative All labs done at [facility] 1 hour glucose 139 RPR negative at 28 weeks hemoglobin 11.9. Notes Visit Date: 06/10/25 Last Updated by: Merissa Malin (OB Clinic)MD Schedule ultrasound for growth in 3 weeks. Recommended influenza, RSV and Tdap vaccines. Patient will think about this and if so we will schedule them at an outpatient pharmacy. Kick counts and labor precautions discussed. Group B strep culture between 35 and 36 weeks. Visit Date: 05/27/25 Last Updated by: Merissa Malin (OB Clinic)MD Discussed labor. Patient will go with flow. Discussed pain control option including natural epidural or IV pain medication. Reviewed 1 hour glucose 139 hemoglobin 11.9 RPR negative. Father the baby present today. Follow-up in 2 weeks. Visit Date: 04/29/25 Last Updated by: Merissa Malin (OB Clinic)MD Had structural survey at [facility] 04/23 and normal. Glucose challenge test ordered from [facility] today. Visit Date: 04/01/25 Last Updated by: Merissa Malin (OB Clinic)MD Structural survey not done yet. It was ordered but not done. Ordered for [facility] Office Procedures OBC Clinic LOC & Office Proc's Nursing/Assessment Patient Status: Established Patient OB Clinic Nursing Assessment: Medication Reconciliation, Update PMH in EMR and Vital Signs OB Clinic Coordination of Care: Complex Care and Chronic Disease 1-5, Education Complex Pt/Fam, Consent,records obtained, informed consent and Staff clarify orders Special Needs: Heart tones Established Patient Charge Established Patient Point Assignment: 120 Established Patient Point Charge: EP Level 4 (120-155) Assessment & Plan Diagnosis / Problem List (1) : Status: Acute Qualifiers: Weeks of gestation: 33 weeks Qualified Code(s): Z3A.33 - 33 weeks gestation of Additional Plan Follow Up: 2 Weeks
== END ==
LOC: HODSOBC 15:30
PROVIDERS: Supervising Provider Obstetrics & Gynecology; Visit Provider Obstetrics & Gynecology
DX: Z34.03 Encounter for supervision of normal first pregnancy, third trimester (principal); Z3A.33 33 weeks gestation of pregnancy; Z88.0 Allergy status to penicillin
CPT/HCPCS: 99214; G0463

== ENCOUNTER 2025-06-24 10:23 | Outpatient (AMB) | payer MEDICAID, SELFPAY ==
[2025-06-24 11:06] VITALS: BP 103/68; PULSE 88; RESP 18; TEMP 36.5; O2SAT 97; BMI 28.0
--- NOTE | 2025-06-24 11:06 | AMB.OBVISIT ---
Vital Signs 06/24/25 11:06 Height 1.57 m Height Method Stated Weight 69.173 kg Weight Measurement Method Standing Scale BMI 28.0 BP 103/68 Blood Pressure Source Automatic Cuff Blood Pressure Location Left Upper Arm Position Sitting Respiration 18 Pulse 88 Pulse Source Monitor Temp 97.7 F Temp Source Temporal Artery Scan Pulse Oximetry (%) 97 Oxygen Delivery Method Room Air Allergies/Home Meds Allergies & Medications Allergies Penicillins Allergy (Mild, Verified 06/24/25 11:08) HIVES Medication Reconciliation vitamins 30 30 mg iron-10 mg iron-folic acid 1 mg-om3 capsule 1 cap PO DAILY #30 caps 12/09/24 [Rx Confirmed 06/24/25] Intake Visit Data Collection New Patient or Established: Established Patient (seen at [facility] within 3 years) Reason for Visit:: OBC/GBS Seen by Clinical Staff ONLY (RN/MA): No Elevator Constructor Required: No Do You Feel Safe at Home: Yes Authorities Contacted: N/A PCP or OBGYN visit in last 3 months: Yes Date of Last PCP or OBGYN visit: 06/10/25 Hx Now: Yes Are you currently on any form of Control: No Pain Present Currently: No Pain Scale Used: Duke-Stone/Numerical Pain scale:: 0 Smoking Status Smoking Status: Never smoker Immunizations Flu Vaccine in the Last 12 Months: No Questionnaires Covid-19 Vaccine Questionnaire Has patient been vacinated for Covid-19 Have you been vacinated for Covid-19: No PHQ-9 PHQ-2 Over the last 2 weeks, how often have you been bothered by any of the following problems? 1. Little interest or pleasure in doing things: not at all 2. Feeling down, depressed, or hopeless: not at all Total score: 0 PHQ-9 3. Trouble falling or staying asleep, or sleeping too much: Not at all 4. Feeling tired or having little energy: Not at all 5. Poor appetite or overeating: Not at all 6. Feeling bad about yourself - or that you are a failure or have let yourself or your family down: Not at all 7. Trouble concentrating on things, such as reading the newspaper or watching television: Not at all 8. Moving or speaking so slowly that other people could have noticed? - Or the opposite - being so fidgety or restless that you have been moving around a lot more than usual: not at all 9. Thoughts that you would be better off or of hurting yourself in some way: Not at all Total score: 0 If you checked off any problems, how difficult have these problems made it for you to do your work, take care of things at home, or get along with other people?: not difficult at all Source: Developed by Drs. Rd Xavier, Moni Moody, Mariano Bridges and colleagues, with an educational thalia from [employer]. Depression screen completed yes Social History Living Situation History Lives With: Family Housing: House Housing Other:: Father of the baby 29 Derrick. Patient going to school to be [employer] Tobacco History Smoking Status: Never smoker Second Hand Smoke Exposure: No Alcohol History Alcohol Intake: Never Domestic Abuse History Do You Feel Safe at Home: Yes Care OB Visit Log OB Flowsheet Initial Weight: 50.49 kg Date <del>?</del> EGA Weight BP Alb Glu CTX Pres Fundal ht FHR Mov Dilation Station Effacement Hx Notes Visit Note 01/07/25 <del>?</del> 11w 3d 50.49 kg (+0 g) 109/61 150 New OB visit. Protein and glucose negative in the urine 02/04/25 <del>?</del> 15w 3d 54.204 kg (+3714.288 g) 109/69 150 No FM Declines NIPT. SS [facility] 03/03/25 <del>?</del> 19w 2d 57.776 kg (+7286.328 g) 111/69 20 147 absent No loss of fluids or vaginal bleeding minimal flutters. Structural survey ordered for [facility] 04/01/25 <del>?</del> 23w 3d 61.745 kg (+11.255 kg) 105/67 23 134 active No contractions loss of fluid or bleeding. She feels good movement. Patient is working 2 jobs one at [employer] and the other at [employer] 04/29/25 <del>?</del> 27w 3d 63.673 kg (+13.183 kg) 113/72 28 145 active No contractions or loss of fluids good movement GCT today 05/27/25 <del>?</del> 31w 3d 66.791 kg (+16.301 kg) 106/65 31 134 active No contractions loss of fluids or vaginal bleeding Passed glucose challenge test 139. 06/10/25 <del>?</del> 33w 3d 67.302 kg (+16.812 kg) 106/68 33 145 active Good movement no contractions no loss of fluids Discussed labor and recommended influenza and Tdap immunization. 06/24/25 <del>?</del> 35w 3d 69.173 kg (+18.683 kg) 103/68 absent cephalic 35 144 active Reports good movement. Denies leaking, bleeding, contractions. Patient's last date of work will be June 26 and disability will start June 27 Disability will start June 27. Patient's last day to wear will be June 26. Discussed labor precautions. Kick count twice a day. GBS today. MERLYN Calculator Estimated Delivery Date Method Current WG Current Estimate 07/26/25 Ultrasound #1 35w 3d Other Estimates 07/26/25 LMP (Certain) 35w 3d Expected Delivery Route/Plan 29-year-old G1, P0 Anticipate Specific Issue/Plans labs performed. A +/antibody negative/rubella immune/RPR nonreactive/HIV negative/hepatitis B surface antigen negative/hep C negative/declined NIPT/ Pap within normal limits/ GC negative /Chlamydia negative/ urine culture negative All labs done at [facility] 1 hour glucose 139 RPR negative at 28 weeks hemoglobin 11.9. Notes Visit Date: 06/24/25 Last Updated by: Gaby Candelario CNM OB panel: pap-,gc/ct-, A+,abs-, rpr;;nr, rub imm, hbsag-,HIV-, gc/ct-, HBSAG-.HC-, 1 hr gtt wnl, nipt- Visit Date: 06/10/25 Last Updated by: Merissa Malin (OB Clinic)MD Schedule ultrasound for growth in 3 weeks. Recommended influenza, RSV and Tdap vaccines. Patient will think about this and if so we will schedule them at an outpatient pharmacy. Kick counts and labor precautions discussed. Group B strep culture between 35 and 36 weeks. Visit Date: 05/27/25 Last Updated by: Merissa Malin (OB Clinic)MD Discussed labor. Patient will go with flow. Discussed pain control option including natural epidural or IV pain medication. Reviewed 1 hour glucose 139 hemoglobin 11.9 RPR negative. Father the baby present today. Follow-up in 2 weeks. Visit Date: 04/29/25 Last Updated by: Merissa Malin (OB Clinic)MD Had structural survey at [facility] 04/23 and normal. Glucose challenge test ordered from [facility] today. Visit Date: 04/01/25 Last Updated by: Merissa Malin (OB Clinic)MD Structural survey not done yet. It was ordered but not done. Ordered for [facility] Office Procedures OBC Clinic LOC & Office Proc's Nursing/Assessment Patient Status: Established Patient OB Clinic Nursing Assessment: Medication Reconciliation, Update PMH in EMR and Vital Signs OB Clinic Coordination of Care: Complex Care and Chronic Disease 1-5, Education Complex Pt/Fam, Consent,records obtained, informed consent, Lab and Imaging orders, Results/Orders obtained and Staff clarify orders Special Needs: Heart tones Miscellaneous Interventions: Culture Specimen Collection Established Patient Charge Established Patient Point Assignment: 155 Established Patient Point Charge: EP Level 4 (120-155) Injection/Vaccine Admin SQ Im Injection: Yes Immunizations diphth,pertus(acell),tetanus 2.5 Lf unit-8 mcg-5 Lf/0.5mL IM syringe Performing Provider: Gaby Candelario CNM Performing Location: [facility] Administered by: Nicol David MA on 06/24/25 12:00 Dose Route Admin Location Dispensed Lot Number Expiration Date Package NDC NDC Credit Historian 0.5 mL IM Left Deltoid 0.5 mL [id number] 07/31/27 [id number] [employer] VIS Given Date VIS Provided VIS Publication Date 06/24/25 Single Vaccine 24 Eligibility Eligibility Date Funding Source Public Non-[facility] Assessment & Plan Diagnosis / Problem List (1) Encounter for supervision of high risk in third trimester, antepartum: Status: Acute Plan GBS today. Discussed labor precautions and kick count. Discussed comfort measures. Disability will start June 27, 2025. Last date of work June 26 Additional Plan Follow Up: 1 Week (obc)
== END 2025-06-24 11:53 | disposition home or self-care (01) ==
LOC: HODSOBC 10:23
PROVIDERS: Supervising Provider Advanced Practice Midwife; Visit Provider Advanced Practice Midwife
DX: O09.93 Supervision of high risk pregnancy, unspecified, third trimester (principal); Z3A.35 35 weeks gestation of pregnancy; Z23 Encounter for immunization; Z36.85 Encounter for antenatal screening for Streptococcus B
CPT/HCPCS: 90471; 90715; 96372; 99214; G0463

== ENCOUNTER 2025-07-02 09:23 | Outpatient (AMB) | payer MEDICAID, SELFPAY ==
--- NOTE | 2025-07-02 09:36 | OBCLNT_ITS ---
Vital Signs 07/02/25 09:37 Height 157 m Height Method Stated Weight 68.946 kg Weight Measurement Method Standing Scale BMI 0.0 BP 105/71 Blood Pressure Source Automatic Cuff Blood Pressure Location Right Upper Arm Position Sitting Respiration 18 Pulse 98 Pulse Source Monitor Temp 97.6 F Temp Source Temporal Artery Scan Pulse Oximetry (%) 97 Oxygen Delivery Method Room Air Allergies/Home Meds Allergies & Medications Allergies Penicillins Allergy (Mild, Verified 07/02/25 09:41) HIVES Medication Reconciliation vitamins 30 30 mg iron-10 mg iron-folic acid 1 mg-om3 capsule 1 cap PO DAILY #30 caps 12/09/24 [Rx Confirmed 07/02/25] Intake Visit Data Collection New Patient or Established: Established Patient (seen at [facility] within 3 years) Reason for Visit:: OBC Seen by Clinical Staff ONLY (RN/MA): No Senior Informatica Developer Required: No Do You Feel Safe at Home: Yes Authorities Contacted: N/A PCP or OBGYN visit in last 3 months: Yes Date of Last PCP or OBGYN visit: 06/24/25 Hx Now: Yes Are you currently on any form of Control: No Pain Present Currently: No Pain Scale Used: Duke-Stone/Numerical Pain scale:: 0 Smoking Status Smoking Status: Never smoker Immunizations Flu Vaccine in the Last 12 Months: Yes Flu Vaccine Exclusion Criteria: Already Received Questionnaires Covid-19 Vaccine Questionnaire Has patient been vacinated for Covid-19 Have you been vacinated for Covid-19: Yes PHQ-9 PHQ-2 Over the last 2 weeks, how often have you been bothered by any of the following problems? 1. Little interest or pleasure in doing things: not at all 2. Feeling down, depressed, or hopeless: not at all Total score: 0 PHQ-9 3. Trouble falling or staying asleep, or sleeping too much: Not at all 4. Feeling tired or having little energy: Not at all 5. Poor appetite or overeating: Not at all 6. Feeling bad about yourself - or that you are a failure or have let yourself or your family down: Not at all 7. Trouble concentrating on things, such as reading the newspaper or watching television: Not at all 8. Moving or speaking so slowly that other people could have noticed? - Or the opposite - being so fidgety or restless that you have been moving around a lot more than usual: not at all 9. Thoughts that you would be better off or of hurting yourself in some way: Not at all Total score: 0 If you checked off any problems, how difficult have these problems made it for you to do your work, take care of things at home, or get along with other people?: not difficult at all Source: Developed by Drs. Rd Xavier, Moni Moody, Mariano Bridges and colleagues, with an educational thalia from [employer]. Depression screen completed yes Social History Living Situation History Marital Status: Lives With: Family Housing: House Housing Other:: Father of the baby 29 Derrick. Patient going to school to be [employer] Tobacco History Smoking Status: Never smoker Second Hand Smoke Exposure: No Alcohol History Alcohol Intake: Never Domestic Abuse History Do You Feel Safe at Home: Yes Care OB Visit Log OB Flowsheet Initial Weight: 50.49 kg Date -?-?-?-?-?-?-?-?-?-?-?-?- EGA Weight BP Alb Glu CTX Pres Fundal ht FHR Mov Dilation Station Effacement Hx Notes Visit Note 01/07/25 -?-?-?-?-?-?-?-?-?-?-?-?- 11w 3d 50.49 kg (+0 g) 109/61 150 New OB visit. Protein and glucose negative in the urine 02/04/25 -?-?-?-?-?-?-?-?-?-?-?-?- 15w 3d 54.204 kg (+3714.288 g) 109/69 150 No FM Declines NIPT. SS [facility] 03/03/25 -?-?-?-?-?-?-?-?-?-?-?-?- 19w 2d 57.776 kg (+7286.328 g) 111/69 20 147 absent No loss of fluids or vaginal bleeding minimal flutters. Structural anali vey ordered for [facility] 04/01/25 -?-?-?-?-?-?-?-?-?-?-?-?- 23w 3d 61.745 kg (+11.255 kg) 105/67 23 134 active No contractions loss of fluid or bleeding. She feels good movement. Patient is working 2 jobs one at [employer] and the other at [employer] 04/29/25 -?-?-?-?-?-?-?-?-?-?-?-?- 27w 3d 63.673 kg (+13.183 kg) 113/72 28 145 active No contractions or loss of fluids good movement GCT today 05/27/25 -?-?-?-?-?-?-?-?-?-?-?-?- 31w 3d 66.791 kg (+16.301 kg) 106/65 31 134 active No contractions loss of fluids or vaginal bleeding Passed glucose challenge test 139. 06/10/25 -?-?-?-?-?-?-?-?-?-?-?-?- 33w 3d 67.302 kg (+16.812 kg) 106/68 33 145 active Good movement no contractions no loss of fluids Discussed labor and recommended influenza and Tdap immunization. 06/24/25 -?-?-?-?-?-?-?-?-?-?-?-?- 35w 3d 69.173 kg (+18.683 kg) 103/68 absent cephalic 35 144 act leticia Reports good movement. Denies leaking, bleeding, contractions. Patient's last date of work will be June 26 and disability will start June 27 Disability will start June 27. Patient's last day to wear will be June 26. Discussed labor precautions. Kick count twice a day. GBS today. 07/02/25 -?-?-?-?-?-?-?-?-?-?-?-?- 36w 4d 68.946 kg (+18.456 kg) 105/71 occasional cephalic 36 145 active Reports good movement. Denies leaking, bleeding. Occasional contractions Discussed labor precautions. Kick count twice a day. Reviewed GBS results. Return in a week OB check MERLYN Calculator Estimated Delivery Date Method Current WG Current Estimate 07/26/25 Ultrasound #1 36w 4d Other Estimates 07/26/25 LMP (Certain) 36w 4d Expected Delivery Route/Plan 29-year-old G1, P0 Anticipate Specific Issue/Plans labs performed. A +/antibody negative/rubella immune/RPR nonreactive/HIV negative/hepatitis B surface antigen negative/hep C negative/declined NIPT/ Pap within normal limits/ GC negative /Chlamydia negative/ urine culture negative All labs done at [facility] 1 hour glucose 139 RPR negative at 28 weeks hemoglobin 11.9. Notes Visit Date: 07/02/25 Last Updated by: Gaby Candelario CNM GBS- Visit Date: 06/24/25 Last Updated by: Gaby Candelario CNM OB panel: pap-,gc/ct-, A+,abs-, rpr;;nr, rub imm, hbsag-,HIV-, gc/ct-, HBSAG-.HC-, 1 hr gtt wnl, nipt- Visit Date: 06/10/25 Last Updated by: Merissa Malin (OB Clinic)MD Schedule ultrasound for growth in 3 weeks. Recommended influenza, RSV and Tdap vaccines. Patient will think about this and if so we will schedule them at an outpatient pharmacy. Kick counts and labor precautions discussed. Group B strep culture between 35 and 36 weeks. Visit Date: 05/27/25 Last Updated by: Merissa Malin (OB Clinic)MD Discussed labor. Patient will go with flow. Discussed pain control option including natural epidural or IV pain medication. Reviewed 1 hour glucose 139 hemoglobin 11.9 RPR negative. Father the baby present today. Follow-up in 2 weeks. Visit Date: 04/29/25 Last Updated by: Merissa Malin (OB Clinic)MD Had structural survey at [facility] 04/23 and normal. Glucose challenge test ordered from [facility] today. Visit Date: 04/01/25 Last Updated by: Merissa Malin (OB Clinic)MD Structural survey not done yet. It was ordered but not done. Ordered for [facility] Office Procedures OBC Clinic LOC & Office Proc's Nursing/Assessment Patient Status: Established Patient OB Clinic Nursing Assessment: Medication Reconciliation, Update PMH in EMR and Vital Signs OB Clinic Coordination of Care: Complex Care and Chronic Disease 1-5, Education Complex Pt/Fam, Consent,records obtained, informed consent, Results/Orders obtained and Staff clarify orders Special Needs: Heart tones Established Patient Charge Established Patient Point Assignment: 125 Established Patient Point Charge: EP Level 4 (120-155) Assessment & Plan Diagnosis / Problem List (1) Encounter for supervision of high risk in third trimester, antepartum: Status: Acute Plan Discussed GBS results. Discussed labor precautions. Kick count. Return in a week OB check Additional Plan Follow Up: 1 Week (obc)
[2025-07-02 09:37] VITALS: BP 105/71; PULSE 98; RESP 18; TEMP 36.4; O2SAT 97
== END 2025-07-02 10:15 | disposition home or self-care (01) ==
LOC: HODSOBC 09:23
PROVIDERS: Supervising Provider Advanced Practice Midwife; Visit Provider Advanced Practice Midwife
DX: O09.93 Supervision of high risk pregnancy, unspecified, third trimester (principal); Z3A.36 36 weeks gestation of pregnancy; Z88.0 Allergy status to penicillin
CPT/HCPCS: 99214; G0463

== ENCOUNTER 2025-07-13 13:31 | Outpatient (AMB) | payer MEDICAID, SELFPAY ==
--- NOTE | 2025-07-13 13:33 | AMB.OBVISIT ---
Vital Signs 07/13/25 13:37 Height 1.57 m Height Method Stated Weight 70.023 kg Weight Measurement Method Standing Scale BMI 28.4 BP 116/75 Blood Pressure Source Automatic Cuff Blood Pressure Location Left Upper Arm Position Sitting Respiration 18 Pulse 81 Pulse Source Monitor Temp 97.2 F Temp Source Oral Pulse Oximetry (%) 98 Oxygen Delivery Method Room Air Allergies/Home Meds Allergies & Medications Allergies Penicillins Allergy (Mild, Verified 07/13/25 13:38) HIVES Medication Reconciliation vitamins 30 30 mg iron-10 mg iron-folic acid 1 mg-om3 capsule 1 cap PO DAILY #30 caps 12/09/24 [Rx Confirmed 07/13/25] Intake Visit Data Collection New Patient or Established: Established Patient (seen at [facility] within 3 years) Reason for Visit:: OBC Seen by Clinical Staff ONLY (RN/MA): No Lining Feller Blindstitch Required: No Do You Feel Safe at Home: Yes Authorities Contacted: N/A PCP or OBGYN visit in last 3 months: Yes Date of Last PCP or OBGYN visit: 07/02/25 Hx Now: Yes Are you currently on any form of Control: No Pain Present Currently: No Pain Scale Used: Duke-Stone/Numerical Pain scale:: 0 Smoking Status Smoking Status: Never smoker Immunizations Flu Vaccine in the Last 12 Months: No Flu Vaccine Exclusion Criteria: No Exclusion Criteria Questionnaires Covid-19 Vaccine Questionnaire Has patient been vacinated for Covid-19 Have you been vacinated for Covid-19: Yes PHQ-9 PHQ-2 Over the last 2 weeks, how often have you been bothered by any of the following problems? 1. Little interest or pleasure in doing things: not at all 2. Feeling down, depressed, or hopeless: not at all Total score: 0 PHQ-9 3. Trouble falling or staying asleep, or sleeping too much: Not at all 4. Feeling tired or having little energy: Not at all 5. Poor appetite or overeating: Not at all 6. Feeling bad about yourself - or that you are a failure or have let yourself or your family down: Not at all 7. Trouble concentrating on things, such as reading the newspaper or watching television: Not at all 8. Moving or speaking so slowly that other people could have noticed? - Or the opposite - being so fidgety or restless that you have been moving around a lot more than usual: not at all 9. Thoughts that you would be better off or of hurting yourself in some way: Not at all Total score: 0 If you checked off any problems, how difficult have these problems made it for you to do your work, take care of things at home, or get along with other people?: not difficult at all Source: Developed by Drs. Rd Xavier, Moni Moody, Mariano Bridges and colleagues, with an educational thalia from [employer]. Depression screen completed yes Social History Living Situation History Lives With: Family Housing: House Housing Other:: Father of the baby 29 Derrick. 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 Protein and glucose negative in the urine 02/04/25 <del>?</del> 15w 3d 54.204 kg (+3714.288 g) 109/69 150 No FM Declines NIPT. SS [facility] 03/03/25 <del>?</del> 19w 2d 57.776 kg (+7286.328 g) 111/69 20 147 absent No loss of fluids or vaginal bleeding minimal flutters. Structural survey ordered for [facility] 04/01/25 <del>?</del> 23w 3d 61.745 kg (+11.255 kg) 105/67 23 134 active No contractions loss of fluid or bleeding. She feels good movement. Patient is working 2 jobs one at [employer] and the other at [employer] 04/29/25 <del>?</del> 27w 3d 63.673 kg (+13.183 kg) 113/72 28 145 active No contractions or loss of fluids good movement GCT today 05/27/25 <del>?</del> 31w 3d 66.791 kg (+16.301 kg) 106/65 31 134 active No contractions loss of fluids or vaginal bleeding Passed glucose challenge test 139. 06/10/25 <del>?</del> 33w 3d 67.302 kg (+16.812 kg) 106/68 33 145 active Good movement no contractions no loss of fluids Discussed labor and recommended influenza and Tdap immunization. 06/24/25 <del>?</del> 35w 3d 69.173 kg (+18.683 kg) 103/68 absent cephalic 35 144 active Reports good movement. Denies leaking, bleeding, contractions. Patient's last date of work will be June 26 and disability will start June 27 Disability will start June 27. Patient's last day to wear will be June 26. Discussed labor precautions. Kick count twice a day. GBS today. 07/02/25 <del>?</del> 36w 4d 68.946 kg (+18.456 kg) 105/71 occasional cephalic 36 145 active Reports good movement. Denies leaking, bleeding. Occasional contractions Discussed labor precautions. Kick count twice a day. Reviewed GBS results. Return in a week OB check 07/13/25 <del>?</del> 38w 1d 70.023 kg (+19.533 kg) 116/75 occasional cephalic 37 145 active Reports good movement. Denies leaking, bleeding, contractions Order breast pump. Note to the baby's father for time off and back bonding. Discussed labor precautions and kick count. Return in a week for OB check MERLYN Calculator Estimated Delivery Date Method Current WG Current Estimate 07/26/25 LMP (Certain) 38w 1d Other Estimates 07/26/25 Ultrasound #1 38w 1d 08/01/25 Ultrasound #2 37w 2d 07/26/25 Manual 38w 1d final merlyn: 07/26/25 Expected Delivery Route/Plan 29-year-old G1, P0 Anticipate Specific Issue/Plans labs performed. A +/antibody negative/rubella immune/RPR nonreactive/HIV negative/hepatitis B surface antigen negative/hep C negative/declined NIPT/ Pap within normal limits/ GC negative /Chlamydia negative/ urine culture negative All labs done at [facility] 1 hour glucose 139 RPR negative at 28 weeks hemoglobin 11.9. Notes Visit Date: 07/02/25 Last Updated by: Gaby Candelario CNM GBS- Visit Date: 06/24/25 Last Updated by: Gaby Candelario CNM OB panel: pap-,gc/ct-, A+,abs-, rpr;;nr, rub imm, hbsag-,HIV-, gc/ct-, HBSAG-.HC-, 1 hr gtt wnl, nipt- Visit Date: 06/10/25 Last Updated by: Merissa Malin (OB Clinic)MD Schedule ultrasound for growth in 3 weeks. Recommended influenza, RSV and Tdap vaccines. Patient will think about this and if so we will schedule them at an outpatient pharmacy. Kick counts and labor precautions discussed. Group B strep culture between 35 and 36 weeks. Visit Date: 05/27/25 Last Updated by: Merissa Malin (OB Clinic)MD Discussed labor. Patient will go with flow. Discussed pain control option including natural epidural or IV pain medication. Reviewed 1 hour glucose 139 hemoglobin 11.9 RPR negative. Father the baby present today. Follow-up in 2 weeks. Visit Date: 04/29/25 Last Updated by: Merissa Malin (OB Clinic)MD Had structural survey at [facility] 04/23 and normal. Glucose challenge test ordered from [facility] today. Visit Date: 04/01/25 Last Updated by: Merissa Malin (OB Clinic)MD Structural survey not done yet. It was ordered but not done. Ordered for [facility] Office Procedures OBC Clinic LOC & Office Proc's Nursing/Assessment Patient Status: Established Patient OB Clinic Nursing Assessment: Medication Reconciliation, Update PMH in EMR and Vital Signs OB Clinic Coordination of Care: Consent,records obtained, informed consent, Education Simp Pt/Fam, Lab and Imaging orders, Results/Orders obtained and Staff clarify orders Special Needs: Heart tones Established Patient Charge Established Patient Point Assignment: 110 Established Patient Point Charge: EP Level 3 (80-115) Assessment & Plan Diagnosis / Problem List (1) Encounter for supervision of high risk in third trimester, antepartum: Status: Acute Plan Discussed labor precautions. Kick count twice a day. Discussed ER precautions. Note for the baby's dad for baby bonding. Return week OB check Additional Plan Follow Up: 1 Week (obc)
[2025-07-13 13:37] VITALS: BP 116/75; PULSE 81; RESP 18; TEMP 36.2; O2SAT 98; BMI 28.4
== END 2025-07-13 14:18 | disposition home or self-care (01) ==
LOC: HODSOBC 13:31
PROVIDERS: Supervising Provider Advanced Practice Midwife; Visit Provider Advanced Practice Midwife
DX: O09.93 Supervision of high risk pregnancy, unspecified, third trimester (principal); Z3A.38 38 weeks gestation of pregnancy; Z88.0 Allergy status to penicillin
CPT/HCPCS: 99213; G0463

== ENCOUNTER 2025-07-21 15:20 | Outpatient (AMB) | payer MEDICAID, SELFPAY ==
[2025-07-21 15:46] VITALS: BP 110/69; PULSE 79; RESP 18; TEMP 36.5; O2SAT 97; BMI 28.3
--- NOTE | 2025-07-21 15:46 | AMB.OBPNC ---
Vital Signs 07/21/25 15:46 Height 1.57 m Height Method Stated Weight 69.967 kg Weight Measurement Method Standing Scale BMI 28.3 BP 110/69 Blood Pressure Source Automatic Cuff Blood Pressure Location Right Upper Arm Position Sitting Respiration 18 Pulse 79 Pulse Source Monitor Temp 97.7 F Temp Source Temporal Artery Scan Pulse Oximetry (%) 97 Oxygen Delivery Method Room Air Allergies/Home Meds Allergies & Medications Allergies Penicillins Allergy (Mild, Verified 07/21/25 15:47) HIVES Medication Reconciliation vitamins 30 30 mg iron-10 mg iron-folic acid 1 mg-om3 capsule 1 cap PO DAILY #30 caps 12/09/24 [Rx Confirmed 07/21/25] Immunizations Immunizations Flu Vaccine in the Last 12 Months: Yes Flu Vaccine Exclusion Criteria: Already Received Care OB Visit Log OB Flowsheet Initial Weight: 50.49 kg Date <del>?</del> EGA Weight BP Alb Glu CTX Pres Fundal ht FHR Mov Dilation Station Effacement Hx Notes Visit Note 01/07/25 <del>?</del> 11w 3d 50.49 kg (+0 g) 109/61 150 New OB visit. Protein and glucose negative in the urine 02/04/25 <del>?</del> 15w 3d 54.204 kg (+3714.288 g) 109/69 150 No FM Declines NIPT. SS [facility] 03/03/25 <del>?</del> 19w 2d 57.776 kg (+7286.328 g) 111/69 20 147 absent No loss of fluids or vaginal bleeding minimal flutters. Structural survey ordered for [facility] 04/01/25 <del>?</del> 23w 3d 61.745 kg (+11.255 kg) 105/67 23 134 active No contractions loss of fluid or bleeding. She feels good movement. Patient is working 2 jobs one at [employer] and the other at [employer] 04/29/25 <del>?</del> 27w 3d 63.673 kg (+13.183 kg) 113/72 28 145 active No contractions or loss of fluids good movement GCT today 05/27/25 <del>?</del> 31w 3d 66.791 kg (+16.301 kg) 106/65 31 134 active No contractions loss of fluids or vaginal bleeding Passed glucose challenge test 139. 06/10/25 <del>?</del> 33w 3d 67.302 kg (+16.812 kg) 106/68 33 145 active Good movement no contractions no loss of fluids Discussed labor and recommended influenza and Tdap immunization. 06/24/25 <del>?</del> 35w 3d 69.173 kg (+18.683 kg) 103/68 absent cephalic 35 144 active Reports good movement. Denies leaking, bleeding, contractions. Patient's last date of work will be June 26 and disability will start June 27 Disability will start June 27. Patient's last day to wear will be June 26. Discussed labor precautions. Kick count twice a day. GBS today. 07/02/25 <del>?</del> 36w 4d 68.946 kg (+18.456 kg) 105/71 occasional cephalic 36 145 active Reports good movement. Denies leaking, bleeding. Occasional contractions Discussed labor precautions. Kick count twice a day. Reviewed GBS results. Return in a week OB check 07/13/25 <del>?</del> 38w 1d 70.023 kg (+19.533 kg) 116/75 occasional cephalic 37 145 active Reports good movement. Denies leaking, bleeding, contractions Order breast pump. Note to the baby's father for time off and back bonding. Discussed labor precautions and kick count. Return in a week for OB check 07/21/25 <del>?</del> 39w 2d 69.967 kg (+19.477 kg) 110/69 occasional cephalic 38 145 active Reports good movement. Denies leaking, bleeding, contractions. Patient has no OB complaints Discussed labor precautions. Kick count reviewed with patient twice a day. I discussed comfort measures and signs symptoms of labor. Return in a week for OB check MERLYN Calculator Estimated Delivery Date Method Current WG Current Estimate 07/26/25 LMP (Certain) 39w 2d Other Estimates 07/26/25 Ultrasound #1 39w 2d 08/01/25 Ultrasound #2 38w 3d 07/26/25 Manual 39w 2d final merlyn: 07/26/25 Expected Delivery Route/Plan 29-year-old G1, P0 Anticipate Specific Issue/Plans labs performed. A +/antibody negative/rubella immune/RPR nonreactive/HIV negative/hepatitis B surface antigen negative/hep C negative/declined NIPT/ Pap within normal limits/ GC negative /Chlamydia negative/ urine culture negative All labs done at [facility] 1 hour glucose 139 RPR negative at 28 weeks hemoglobin 11.9. Notes Visit Date: 07/02/25 Last Updated by: Gaby Candelario CNM GBS- Visit Date: 06/24/25 Last Updated by: Gaby Candelario CNM OB panel: pap-,gc/ct-, A+,abs-, rpr;;nr, rub imm, hbsag-,HIV-, gc/ct-, HBSAG-.HC-, 1 hr gtt wnl, nipt- Visit Date: 06/10/25 Last Updated by: Mreissa Malin (OB Clinic)MD Schedule ultrasound for growth in 3 weeks. Recommended influenza, RSV and Tdap vaccines. Patient will think about this and if so we will schedule them at an outpatient pharmacy. Kick counts and labor precautions discussed. Group B strep culture between 35 and 36 weeks. Visit Date: 05/27/25 Last Updated by: Merisas Malin (OB Clinic)MD Discussed labor. Patient will go with flow. Discussed pain control option including natural epidural or IV pain medication. Reviewed 1 hour glucose 139 hemoglobin 11.9 RPR negative. Father the baby present today. Follow-up in 2 weeks. Visit Date: 04/29/25 Last Updated by: Merissa Malin (OB Clinic)MD Had structural survey at [facility] 04/23 and normal. Glucose challenge test ordered from [facility] today. Visit Date: 04/01/25 Last Updated by: Merissa Malin (OB Clinic)MD Structural survey not done yet. It was ordered but not done. Ordered for [facility] Office Procedures OBC Clinic LOC & Office Proc's Nursing/Assessment Patient Status: Established Patient OB Clinic Nursing Assessment: Medication Reconciliation, Update PMH in EMR and Vital Signs OB Clinic Coordination of Care: Complex Care and Chronic Disease 1-5, Education Complex Pt/Fam, Consent,records obtained, informed consent, Lab and Imaging orders, Results/Orders obtained and Staff clarify orders Special Needs: Heart tones Established Patient Charge Established Patient Point Assignment: 140 Established Patient Point Charge: EP Level 4 (120-155) Assessment & Plan Diagnosis / Problem List (1) Encounter for supervision of high risk in third trimester, antepartum: Status: Acute Plan Discussed labor precautions with patient. Kick count twice a day reviewed and discussed. Discussed signs and symptoms of labor. And we discussed ER precautions and return week OB check Additional Plan Follow Up: 1 Week (obc)
== END 2025-07-21 16:06 | disposition home or self-care (01) ==
LOC: HODSOBC 15:20
PROVIDERS: Supervising Provider Advanced Practice Midwife; Visit Provider Advanced Practice Midwife
DX: O09.93 Supervision of high risk pregnancy, unspecified, third trimester (principal); Z3A.39 39 weeks gestation of pregnancy; Z88.0 Allergy status to penicillin
CPT/HCPCS: 99214; G0463

== ENCOUNTER 2025-07-29 14:01 | Outpatient (AMB) | payer MEDICAID, SELFPAY ==
[2025-07-29 15:03] VITALS: BP 118/73; PULSE 96; RESP 18; TEMP 36.5; O2SAT 96; BMI 28.3
--- NOTE | 2025-07-29 15:03 | AMB.OBPNC ---
Vital Signs 07/29/25 15:03 Height 1.57 m Height Method Stated Weight 69.967 kg Weight Measurement Method Standing Scale BMI 28.3 BP 118/73 Blood Pressure Source Automatic Cuff Blood Pressure Location Right Upper Arm Position Sitting Respiration 18 Pulse 96 Pulse Source Monitor Temp 97.7 F Temp Source Temporal Artery Scan Pulse Oximetry (%) 96 Oxygen Delivery Method Room Air Allergies/Home Meds Allergies & Medications Allergies Penicillins Allergy (Mild, Verified 07/29/25 15:04) HIVES Medication Reconciliation vitamins 30 30 mg iron-10 mg iron-folic acid 1 mg-om3 capsule 1 cap PO DAILY #30 caps 12/09/24 [Rx Confirmed 07/29/25] Immunizations Immunizations Flu Vaccine in the Last 12 Months: No Flu Vaccine Exclusion Criteria: No Exclusion Criteria Care OB Visit Log OB Flowsheet Initial Weight: 50.49 kg Date <del>?</del> EGA Weight BP Alb Glu CTX Pres Fundal ht FHR Mov Dilation Station Effacement Hx Notes Visit Note 01/07/25 <del>?</del> 11w 3d 50.49 kg (+0 g) 109/61 150 New OB visit. Protein and glucose negative in the urine 02/04/25 <del>?</del> 15w 3d 54.204 kg (+3714.288 g) 109/69 150 No FM Declines NIPT. SS [facility] 03/03/25 <del>?</del> 19w 2d 57.776 kg (+7286.328 g) 111/69 20 147 absent No loss of fluids or vaginal bleeding minimal flutters. Structural survey ordered for [facility] 04/01/25 <del>?</del> 23w 3d 61.745 kg (+11.255 kg) 105/67 23 134 active No contractions loss of fluid or bleeding. She feels good movement. Patient is working 2 jobs one at [employer] and the other at [employer] 04/29/25 <del>?</del> 27w 3d 63.673 kg (+13.183 kg) 113/72 28 145 active No contractions or loss of fluids good movement GCT today 05/27/25 <del>?</del> 31w 3d 66.791 kg (+16.301 kg) 106/65 31 134 active No contractions loss of fluids or vaginal bleeding Passed glucose challenge test 139. 06/10/25 <del>?</del> 33w 3d 67.302 kg (+16.812 kg) 106/68 33 145 active Good movement no contractions no loss of fluids Discussed labor and recommended influenza and Tdap immunization. 06/24/25 <del>?</del> 35w 3d 69.173 kg (+18.683 kg) 103/68 absent cephalic 35 144 active Reports good movement. Denies leaking, bleeding, contractions. Patient's last date of work will be June 26 and disability will start June 27 Disability will start June 27. Patient's last day to wear will be June 26. Discussed labor precautions. Kick count twice a day. GBS today. 07/02/25 <del>?</del> 36w 4d 68.946 kg (+18.456 kg) 105/71 occasional cephalic 36 145 active Reports good movement. Denies leaking, bleeding. Occasional contractions Discussed labor precautions. Kick count twice a day. Reviewed GBS results. Return in a week OB check 07/13/25 <del>?</del> 38w 1d 70.023 kg (+19.533 kg) 116/75 occasional cephalic 37 145 active Reports good movement. Denies leaking, bleeding, contractions Order breast pump. Note to the baby's father for time off and back bonding. Discussed labor precautions and kick count. Return in a week for OB check 07/21/25 <del>?</del> 39w 2d 69.967 kg (+19.477 kg) 110/69 occasional cephalic 38 145 active Reports good movement. Denies leaking, bleeding, contractions. Patient has no OB complaints Discussed labor precautions. Kick count reviewed with patient twice a day. I discussed comfort measures and signs symptoms of labor. Return in a week for OB check 07/29/25 <del>?</del> 40w 3d 69.967 kg (+19.477 kg) 118/73 occasional cephalic 39 145 active Reports good movement. Denies leaking or bleeding, occasional contraction and pressure. Patient to labor and delivery today for NST BPP and complete OB. Schedule induction for August 02. Kick count twice a day. And comfort measures. Return in a week OB check MERLYN Calculator Estimated Delivery Date Method Current WG Current Estimate 07/26/25 LMP (Certain) 40w 3d Other Estimates 07/26/25 Ultrasound #1 40w 3d 08/01/25 Ultrasound #2 39w 4d 07/26/25 Manual 40w 3d final merlyn: 07/26/25 Expected Delivery Route/Plan 29-year-old G1, P0 Anticipate Specific Issue/Plans labs performed. A +/antibody negative/rubella immune/RPR nonreactive/HIV negative/hepatitis B surface antigen negative/hep C negative/declined NIPT/ Pap within normal limits/ GC negative /Chlamydia negative/ urine culture negative All labs done at [facility] 1 hour glucose 139 RPR negative at 28 weeks hemoglobin 11.9. Notes Visit Date: 07/02/25 Last Updated by: Gaby Candelario CNM GBS- Visit Date: 06/24/25 Last Updated by: Gaby Candelario CNM OB panel: pap-,gc/ct-, A+,abs-, rpr;;nr, rub imm, hbsag-,HIV-, gc/ct-, HBSAG-.HC-, 1 hr gtt wnl, nipt- Visit Date: 06/10/25 Last Updated by: Merissa Malin (OB Clinic)MD Schedule ultrasound for growth in 3 weeks. Recommended influenza, RSV and Tdap vaccines. Patient will think about this and if so we will schedule them at an outpatient pharmacy. Kick counts and labor precautions discussed. Group B strep culture between 35 and 36 weeks. Visit Date: 05/27/25 Last Updated by: Merissa Malin (OB Clinic)MD Discussed labor. Patient will go with flow. Discussed pain control option including natural epidural or IV pain medication. Reviewed 1 hour glucose 139 hemoglobin 11.9 RPR negative. Father the baby present today. Follow-up in 2 weeks. Visit Date: 04/29/25 Last Updated by: Merissa Malin (OB Clinic)MD Had structural survey at [facility] 04/23 and normal. Glucose challenge test ordered from [facility] today. Visit Date: 04/01/25 Last Updated by: Merissa Malin (OB Clinic)MD Structural survey not done yet. It was ordered but not done. Ordered for [facility] Office Procedures OBC Clinic LOC & Office Proc's Nursing/Assessment Patient Status: Established Patient OB Clinic Nursing Assessment: Medication Reconciliation, Update PMH in EMR and Vital Signs OB Clinic Coordination of Care: Complex Care and Chronic Disease 1-5, Education Complex Pt/Fam, Consent,records obtained, informed consent, Lab and Imaging orders, Results/Orders obtained and Staff clarify orders Special Needs: Heart tones Established Patient Charge Established Patient Point Assignment: 140 Established Patient Point Charge: EP Level 4 (120-155) Assessment & Plan Diagnosis / Problem List (1) Encounter for supervision of high risk in third trimester, antepartum: Status: Acute Plan To labor and delivery today for NST BPP and complete OB. Schedule induction for August 02. Discussed labor precautions and kick count twice a day. Return week OB check Additional Plan Follow Up: 1 Week (obc)
== END 2025-07-29 15:50 | disposition home or self-care (01) ==
LOC: HODSOBC 14:01
PROVIDERS: Supervising Provider Advanced Practice Midwife; Visit Provider Advanced Practice Midwife
DX: O09.893 Supervision of other high risk pregnancies, third trimester (principal); O48.0 Post-term pregnancy; Z3A.40 40 weeks gestation of pregnancy; Z88.0 Allergy status to penicillin
CPT/HCPCS: 99214; G0463

== ENCOUNTER 2025-07-29 15:56 | Outpatient (CLI) | payer MEDICAID, SELFPAY ==
--- NOTE | 2025-07-29 16:00 | XR_ITS ---
Examination: Complete OB ultrasound greater than 14 weeks Date and time of exam: July 29, 2025, 1625 hours INDICATIONS: Post dates Findings: Viable intrauterine single fetus with single amniotic sac presentation cephalic spine maternal left Cardiac motion 143 bpm Placenta anterior grade 2 Umbilical cord insertion seen Amniotic fluid index 12.8 cm Ovaries obscured by bowel gas. Composite estimated gestational age based on BPD, head circumference, abdominal circumference, femur length is 37 weeks 6 days Estimated weight 3348.8 g. Survey of intracranial anatomy, spinal anatomy, abdominal anatomy, four-chamber heart performed with no abnormalities identified. Impression: Viable intrauterine gestation cephalic presentation.
--- NOTE | 2025-07-29 16:01 | XR_ITS ---
Examination: Biophysical profile, ultrasound Date and time of exam: July 29, 2025, 1613 hours INDICATIONS: Post dates Technique: Multiple transabdominal sonographic images of the pelvis abdomen obtained. Attention is directed to the breathing movement, gross body movement, amniotic fluid volume and tone. Findings: Amniotic fluid index 13.5 cm Total biophysical profile is 8 of 8. breathing movement is 2. Gross body movement is 2. tone is 2. Qualitative amniotic fluid volume is 2 Impression: Biophysical profile is 8 of 8.
[2025-07-29 16:46] VITALS: BP 115/71; PULSE 88
[2025-07-29 16:48] VITALS: BP 115/71; PULSE 88; RESP 18; RESP 98; TEMP 36.7; BMI 28.1
== END 2025-07-29 17:25 | disposition home or self-care (01) ==
LOC: S4S1 15:58 → S4SX 15:58
PROVIDERS: Referring Provider Obstetrics & Gynecology; Visit Provider Obstetrics & Gynecology
DX: Z34.03 Encounter for supervision of normal first pregnancy, third trimester (principal); Z3A.37 37 weeks gestation of pregnancy
CPT/HCPCS: 59025; 76805; 76819

== ENCOUNTER 2025-08-01 12:26 | Inpatient (IN) | payer MEDICAID, SELFPAY ==
[2025-08-01] VITALS (156 sets, daily range): BP systolic 91–149; BP diastolic 50–77; PULSE 73–116; RESP 16–97; TEMP 36.8–37.2; O2SAT 91–100; BMI 27.8
[2025-08-01] MEDS: ONDANSETRON ODT 4 MG TABRAP PO (13:48)
[2025-08-01] MEDS: RINGERS LACTATED 1000 ML 1,000 ML 100 ML IV ×4 (14:49→21:30)
--- NOTE | 2025-08-01 14:55 | PD.LDHP ---
Documentation for date of: 08/01/25 OB Labor/Induct. HPI History of Present Illness Chief complaint: Active labor : 1 Para: 0 Term pregnancies: 0 pregnancies: 0 Living children: 0 History of Abortions: Spontaneous and Elective: 0 History of Vaginal deliveries: 0 History of sections: No History of : No MERLYN: 07/26/25 Gestational Age (weeks): 40 Gestational Age (days): 6 History of present illness: The patient is a 29-year-old at 40-6/7 weeks who presents in active labor. She was 2 to 3 cm walked for about an hour and changed to 3 to 4 cm. She is admitted in labor. care is all with the [facility] women's clinic. Her group B strep is negative. Her has been uncomplicated and she has no chronic medical problems. All records are up-to-date and on the chart. History of Present Dating criteria: LMP confirmed by 1st trimester US Adequate Care: Yes Ultrasounds: normal mid trimester US Obstetrical complications: none Medical complications: none Labs Maternal Blood Type: A Pos Labs: Positive: Rubella Titre (Rubella immune) and Negative: RPR, Hepatitis B, HIV, Chlamydia, Gonorrhea and Group Beta Strep Review of Systems Review of Systems Narrative Review of Systems: Patient is alert and orient x 3. She reports good movement no loss of fluids no vaginal bleeding she reports regular strong contractions about every 3 to 5 minutes. She was admitted around 1430 on 08/01/25. Past Medical History Surgical History SURGICAL: Negative Section Past Medical History Comments PMH COMMENT: Patient denies any significant past medical history including no asthma no hypertension no diabetes. No significant surgical history. No obstetrical problems this . Meds Home Medications and Allergies Allergies Allergy/AdvReac Type Severity Reaction Status Date / Time Penicillins Allergy Mild HIVES Verified 08/01/25 12:51 OB Exam Physical Exam Vital signs: Temp Pulse Resp BP Pulse Ox 98.8 F 107 H 16 123/72 96 08/01/25 12:26 08/01/25 14:26 08/01/25 12:26 08/01/25 14:26 08/01/25 14:52 Routine Abdominal Exam Abdominal: Present soft Detailed Labor and Delivery Exam Effacement (%): 90 Cervix position: mid station: -1 Consistency: soft Presentation: Vertex Membranes: intact Baseline heart rate: 140 monitor accelerations: 15x15 monitor decelerations: None group home variability: Moderate (11-25) Contraction frequency (min): Every 3 min Tachysystole: No Contraction intensity: Moderate OB Assessment & Plan Assessment and Plan (1) Encounter for supervision of high risk in third trimester, antepartum: Status: Acute Additional Plan Induction method: none Plan: anticipate NVD Additional Plan Comment: Admit patient. Okay for epidural. Anticipate vaginal delivery. EFW 7-1/2 pounds.
[2025-08-01 14:58] LABS: Basophils # (Auto) 0.0 Thou/mm3 (0.0-0.2); Basophils % (Auto) 0 % (0-2.5); Eosinophils # (Auto) 0.0 Thou/mm3 (0.0-0.5); Eosinophils % (Auto) 0 % (0-10); Hematocrit 39.3 % (36.0-46.0); Hemoglobin 13.6 g/dL (12.0-16.0); Immature Granulocytes Auto 0.08 Thou/mm3 (0.00-0.00); Lymphocytes # (Auto) 1.2 Thou/mm3 (1.0-4.8); Lymphocytes % (Auto) 8 % (10-50); Mean Corpuscular HGB Conc 34.6 g/dl (31.0-37.0); Mean Corpuscular Hemoglobin 30.6 pg (25.0-35.0); Mean Corpuscular Volume 89 fL (80-100); Monocytes # (Auto) 0.3 Thou/mm3 (0.0-0.8); Monocytes % (Auto) 2 % (0-12); Neutrophils # (Auto) 12.9 Thou/mm3 (1.8-7.7); Neutrophils % (Auto) 89 % (37-80); Nucleated Red Blood Cell # 0.00 Thou/mm3 (0.00-0.00); Nucleated Red Blood Cell % 0 /100 WBC (0); Platelet Count 242 Thou/mm3 (140-440); RDW Standard Deviation 42.5 fL (36.4-46.3); Red Blood Count 4.44 Miln/mm3 (4.00-5.20); White Blood Count 14.4 Thou/mm3 (3.6-11.0)
[2025-08-01 15:43] LABS: Syphilis Nonreactive (Nonreactive)
[2025-08-01] MEDS: OXYTOCIN in NS 30 units 30 UNIT/500 ML BAG IV (17:58)
[2025-08-02] VITALS (53 sets, daily range): BP systolic 91–269; BP diastolic 50–145; PULSE 75–169; RESP 15–17; TEMP 36.4–36.8; O2SAT 90–100
[2025-08-02] MEDS: OXYTOCIN in NS 20 units 20 UNIT/1,000 ML BAG 125 UNIT IV (02:20)
--- NOTE | 2025-08-02 02:39 | PD.LDDELS ---
Data ([place]) Data Hx Section: No Maternal Blood Type: A Pos Rubella Titre: Positive RPR: Non-reactive Labs: Negative: RPR, Hepatitis B, HIV, Chlamydia, Gonorrhea and Group Beta Strep : 1 Term: 0 : 0 Livin Abortions: Spontaneous & Theraputic: 0 Delivery Data (Castro) Labor Data Initiation of labor: Augmentation Induction/Augmentation Agent: Pitocin ROM date: 08/01/25 ROM time: 17:00 Amniotic membrane rupture type: Artificial Amniotic fluid description: Clear Delivery Data EDC: 07/26/25 EDC calculated by:: LMP/early US confirmation Date of arrival to unit: 08/01/25 Delivered by: Merissa Malin ( Clinic) Delivery Method Delivery method: Normal Vaginal Delivery Presentation: Vertex
[2025-08-02] MEDS: IBUPROFEN TAB 400 MG TABLET 800 MG PO ×3 (02:48→19:36)
[2025-08-02] MEDS: BENZO/LANO/ALOE (Dermoplast) 60 GM CAN 1 SPRAY TOP (02:48)
--- NOTE | 2025-08-02 06:25 | PD.LDDELS ---
Data (Castro) Data Hx Section: No Maternal Blood Type: A Pos Rubella Titre: Positive RPR: Non-reactive Labs: Negative: RPR, Hepatitis B, HIV, Chlamydia, Gonorrhea and Group Beta Strep : 1 Term: 0 : 0 Livin Abortions: Spontaneous & Theraputic: 0 Delivery Data (Castro) Labor Data Initiation of labor: Augmentation Induction/Augmentation Agent: Pitocin ROM date: 08/01/25 ROM time: 17:00 Amniotic membrane rupture type: Artificial Amniotic fluid description: Clear Delivery Data EDC: 07/26/25 EDC calculated by:: LMP/early US confirmation Date of arrival to unit: 08/01/25 Time of arrival to unit: 12:00 Onset of labor date: 08/01/25 Onset of labor time: 16:09 Complete dilation date: 08/02/25 Complete dilation time: 01:11 [place] delivery date: 08/02/25 delivery time: 02:16 Gestational age (weeks): 41 Gestational age (days): 0 Placenta delivery date: 08/02/25 Placenta delivery time: 02:21 Stage 1 total time: Labor - Stage 1 Duration 9 hours and 2 minutes Delivered by: Merissa Malin (OB Clinic) Delivery nurse: Bradly Ronquillo RN [place] [facility] nurse: Gogo Linda RN [employer] Technician at delivery: No Support person(s) at delivery: FOB Other staff at delivery: Kaye Lou RN Delivery Method Delivery method: Normal Vaginal Delivery Presentation: Vertex position: OA Anesthesia Type Anesthesia Type: Epidural Delivery Room Medications Delivery room medications: Pitocin 20 u IV Placenta Placenta delivery description: Spontaneous Cord blood sent to lab: Yes cord blood collection: Cord Blood Type Episiotomy Episiotomy description: None Lacerations #2: Perineal: 1st degree Periurethral: Left first-degree periurethral Perineal repair Sutures used for repair: 4.0 Chromic EBL Estimated blood loss (ml): 100 Umbilical Cord cord description: 3 Vessels and Around Extremity Additional Procedures The patient presents for his progress to complete approximately 0111 and began pushing. She pushed almost an hour delivering a liveborn female at 0216. Findings: Liveborn female in the ADELE presentation with a foot cord x 1 noted on the nuchal cord no meconium .Apgars were 9 and 9 Weight was 7 pounds 3 ounces. As the baby was vigorous at , she was placed directly on mother's chest and delayed cord clamping was performed for 3 minutes. The cord was then clamped and cut and the infant stayed on mother's chest. The placenta then delivered at 0221 approximately 5 minutes after the baby delivered intact complete and normal. Patient sustained a left first-degree periurethral laceration and a first degree perineal laceration all repaired in a standard fashion using 4-0 chromic. Complications were none. Condition both mom and infant were in stable condition the delivery room. EBL was 100 cc. Complications Complications: None [place] Data ([place]) [place] Data order: 1 [place]'s gender: Female 1 minute: 9 5 minutes: 9
[2025-08-02] MEDS: DOCUSATE SOD 100 MG CAPSULE PO ×2 (09:50→19:35)
[2025-08-02] MEDS: ACETAMINOPHEN 325 MG TABLET 650 MG PO (15:22)
[2025-08-03 03:57] VITALS: BP 117/80; PULSE 79; RESP 16; TEMP 36.3; O2SAT 98
[2025-08-03 05:54] LABS: Basophils # (Auto) 0.1 Thou/mm3 (0.0-0.2); Basophils % (Auto) 1 % (0-2.5); Eosinophils # (Auto) 0.2 Thou/mm3 (0.0-0.5); Eosinophils % (Auto) 2 % (0-10); Hematocrit 36.6 % (36.0-46.0); Hemoglobin 12.2 g/dL (12.0-16.0); Immature Granulocytes Auto 0.12 Thou/mm3 (0.00-0.00); Lymphocytes # (Auto) 2.6 Thou/mm3 (1.0-4.8); Lymphocytes % (Auto) 20 % (10-50); Mean Corpuscular HGB Conc 33.3 g/dl (31.0-37.0); Mean Corpuscular Hemoglobin 30.5 pg (25.0-35.0); Mean Corpuscular Volume 92 fL (80-100); Monocytes # (Auto) 1.0 Thou/mm3 (0.0-0.8); Monocytes % (Auto) 7 % (0-12); Neutrophils # (Auto) 9.3 Thou/mm3 (1.8-7.7); Neutrophils % (Auto) 70 % (37-80); Nucleated Red Blood Cell # 0.00 Thou/mm3 (0.00-0.00); Nucleated Red Blood Cell % 0 /100 WBC (0); Platelet Count 196 Thou/mm3 (140-440); RDW Standard Deviation 44.5 fL (36.4-46.3); Red Blood Count 4.00 Miln/mm3 (4.00-5.20); White Blood Count 13.3 Thou/mm3 (3.6-11.0)
--- NOTE | 2025-08-03 06:15 | PD.LDPPPRG ---
Subjective Subjective Interval history: No complaints of pain. No dizziness. Bonding and breast-feeding Exam Vital Signs Temp Pulse Resp BP Pulse Ox O2 Del Method 97.4 F 79 16 117/80 98 Room Air 08/03/25 03:57 08/03/25 03:57 08/03/25 03:57 08/03/25 03:57 08/03/25 03:57 08/03/25 03:57 Narrative Exam Vital signs are stable afebrile. Pressure soft. Fundus firm below the umbilicus. Perineum is intact no swelling no signs of infection. Small lochia. Uterus well involuted. Negative Homans' sign. 2+ DTRs Objective Labs 08/03/25 05:18 Labs: Laboratory Results - last 24 hr 08/03/25 05:18 WBC 13.3 H RBC 4.00 Hgb 12.2 Hct 36.6 MCV 92 MCH 30.5 MCHC 33.3 RDW Std Deviation 44.5 Plt Count 196 D Neut % (Auto) 70 Lymph % (Auto) 20 [place] % (Auto) 7 Eos % (Auto) 2 Baso % (Auto) 1 Neut # (Auto) 9.3 H Lymph # (Auto) 2.6 [place] # (Auto) 1.0 H Eos # (Auto) 0.2 Baso # (Auto) 0.1 Immature Gran # (Auto) 0.12 H Absolute Nucleated RBC 0.00 Immature Gran % 1 H Nucleated RBC % 0 Assessment & Plan Problem List (1) Encounter for supervision of high risk in third trimester, antepartum: Status: Acute Assessment Comment Assessment comment: 24 hr pp Plan Comment Plan Comment: Discharge home with baby. Continue vitamins and iron. Tylenol ibuprofen for pain. Discussed danger signs and symptoms and ER precautions. Discussed signs and symptoms of infection. Comfort measures for periurethral tear. And return in 3 weeks for visit Time Spent With Patient Time: Total time spent is greater than 50% in coordination of care (as documented) at patient's floor/unit and/or counseling patient:
--- NOTE | 2025-08-03 06:18 | PD.LDDS ---
DS: Providers Provider Date of admission: 08/01/25 14:53 Primary care physician: Physician No Primary/Family Admitting Provider: Merissa Malin MD ([facility]) Attending Provider on Admission: Gaby Candelario CNM Consults: 08/02/25 02:38 Referral Routine Comment: Attending Provider on DC: Gaby Candelario CNM Discharging Provider: Gaby Candelario CNM DS: Diagnosis Problem List Completed Was Problem List Reviewed/Reconciled?: Yes Summary/Hosp Course Brief History: The patient is a 29-year-old at 40-6/7 weeks who presents in active labor. She was 2 to 3 cm walked for about an hour and changed to 3 to 4 cm. She is admitted in labor. care is all with the [facility] women[facility] clinic. Her group B strep is negative. Her has been uncomplicated and she has no chronic medical problems. All records are up-to-date and on the chart. Peripartum Data Delivery Method: Normal Vaginal Delivery Episiotomy Description: None Laceration Description: yes complications: none Time Spent with Patient Time attestation: Total time spent providing and/or coordinating discharge services: Exam Vital Signs Temp Pulse Resp BP Pulse Ox O2 Del Method 97.4 F 79 16 117/80 98 Room Air 08/03/25 03:57 08/03/25 03:57 08/03/25 03:57 08/03/25 03:57 08/03/25 03:57 08/03/25 03:57 Discharge Plan Plan Patient Disposition: HOME (Self Care) Patient condition on transfer: Stable Prescriptions/Referrals Prescriptions/Med Rec: No Action PNV [id number] 30 mg iron-10 mg iron-1 mg capsule 1 cap PO DAILY Qty: 30 0RF Referrals: No Primary/Family,Physician [Primary Care Provider] Patient/Caregiver Discharge Instructions Meds to Beds: No Discharge Activity: resume usual activities Print Language: Romanian Activity Restrictions/Additional Instructions: Discharge home with baby. Continue vitamins and iron. Tylenol ibuprofen for pain. Discussed danger signs symptoms and ER precautions. Discussed signs and symptoms of infection. Discussed comfort measures for periurethral tear. Return in 2 weeks for visit Stand Alone Forms: Shaniqua Award Info., Patient Portal Info Letter Discharge Order Discharge Orders: Discharge (Routine); Ordered 08/03/25 Ordered By: Gaby Candelario Planned Discharge Date 08/03/25
[2025-08-03 07:30] VITALS: BP 114/72; PULSE 63; RESP 16; TEMP 36.4; O2SAT 96
[2025-08-03] MEDS: DOCUSATE SOD 100 MG CAPSULE PO (08:25)
[2025-08-03] MEDS: IBUPROFEN TAB 400 MG TABLET 800 MG PO (08:28)
== END 2025-08-03 12:55 | disposition home or self-care (01) | DRG 560 ==
LOC: S4SX 15:11 → S4NX 08-02 04:48
PROVIDERS: Admitting Provider Obstetrics & Gynecology; Visit Provider Advanced Practice Midwife
DX: O48.0 Post-term pregnancy (principal); Z37.0 Single live birth; Z3A.40 40 weeks gestation of pregnancy; O69.81X0 Labor and delivery complicated by cord around neck, without compression, not applicable or unspecified; O70.0 First degree perineal laceration during delivery; O71.82 Other specified trauma to perineum and vulva
CPT/HCPCS: 36415; 59025; 59409; 85025; 86780; 86850; 86900; 86901; 94762; J2590; J2795; J3010; J7120; Q0162; A9270

== ENCOUNTER 2025-08-17 15:37 | Outpatient (AMB) | payer MEDICAID, SELFPAY ==
--- NOTE | 2025-08-17 15:42 | AMBOBPPN_ITS ---
Vital Signs 08/17/25 15:43 Height 1.57 m Height Method Stated Weight 62.142 kg Weight Measurement Method Standing Scale BMI 25.2 BP 107/75 Blood Pressure Source Automatic Cuff Blood Pressure Location Right Upper Arm Position Sitting Respiration 18 Pulse 74 Pulse Source Monitor Temp 97.1 F Temp Source Temporal Artery Scan Pulse Oximetry (%) 98 Oxygen Delivery Method Room Air Allergies/Home Meds Allergies & Medications Allergies Penicillins Allergy (Mild, Verified 08/17/25 15:43) HIVES Medication Reconciliation vitamins 30 30 mg iron-10 mg iron-folic acid 1 mg-om3 capsule 1 cap PO DAILY #30 caps 12/09/24 [Rx Confirmed 08/17/25] Intake Visit Data Collection New Patient or Established: Established Patient (seen at [facility] within 3 years) Reason for Visit:: Seen by Clinical Staff ONLY (RN/MA): No Electronics Inspector Required: No Do You Feel Safe at Home: Yes Authorities Contacted: N/A PCP or OBGYN visit in last 3 months: Yes Date of Last PCP or OBGYN visit: 08/03/25 Hx Now: No Are you currently on any form of Control: No Pain Present Currently: No Pain Scale Used: [employer]/Numerical Pain scale:: 0 Smoking Status Smoking Status: Never smoker Immunizations Flu Vaccine in the Last 12 Months: Yes Flu Vaccine Exclusion Criteria: Already Received DATA OFFICER: Past Medical History Past Medical History: No Hx Neurological Disorders, Yes Hx Breast Cancer (maternal grandmother), No Hx Cardiac Disorders, Yes Hx Cancer, No Hx Blood Disorders, No Hx Gastrointestinal Disorders, No Hx Renal Disease, No Hx Diabetes Mellitus Type 1 and No Hx Diabetes Mellitus Type 2 Questionnaires Covid-19 Vaccine Questionnaire Has patient been vacinated for Covid-19 Have you been vacinated for Covid-19: No Social History Living Situation History Marital Status: Lives With: Family Housing: House Housing Other:: Father of the baby 29 Derrick. Patient going to school to be [employer] Tobacco History Smoking Status: Never smoker Second Hand Smoke Exposure: No Alcohol History Alcohol Intake: Former Alcohol Intake Frequency: holidays/special occasions only Domestic Abuse History Do You Feel Safe at Home: Yes EPDS - PP Depression Screening [place] Pos[place] Depression Screen I have been able to laugh and see the funny side of things: (0) As much as I always could I have looked forward with enjoyment to things: (0) As much as I ever did I have blamed myself unnecessarily when things went wrong: (0) No, never I have been anxious or worried for no good reason: (0) No, not at all I have felt scared or panicky for no very good reason: (0) No, not at all Things have been getting on top of me: (0) No, I have been coping as well as ever I have been so unhappy that I have had difficulty sleeping: (0) No, not at all I have felt sad or miserable: (0) No, not at all I have been so unhappy that I have been crying: (0) No, never The thought of harming myself has occurred to me: (0) Never EPDS completed yes Care OB Visit Log OB Flowsheet Initial Weight: 50.49 kg Date -?-?-?-?-?-?-?-?-?-?-?-?- EGA Weight BP Alb Glu CTX Pres Fundal ht FHR Mov Dilation Station Effacement Hx Notes Visit Note 01/07/25 -?-?-?-?-?-?-?-?-?-?-?-?- 11w 3d 50.49 kg (+0 g) 109/61 150 New OB visit. Protein and glucose negative in the urine 02/04/25 -?-?-?-?-?-?-?-?-?-?-?-?- 15w 3d 54.204 kg (+3714.288 g) 109/69 150 No FM Declines NIPT. SS [facility] 03/03/25 -?-?-?-?-?-?-?-?-?-?-?-?- 19w 2d 57.776 kg (+7286.328 g) 111/69 20 147 absent No loss of fluids or vaginal bleeding minimal flutters. Structural anali vey ordered for [facility] 04/01/25 -?-?-?-?-?-?-?-?-?-?-?-?- 23w 3d 61.745 kg (+11.255 kg) 105/67 23 134 active No contractions loss of fluid or bleeding. She feels good movement. Patient is working 2 jobs one at [employer] and the other at [employer] 04/29/25 -?-?-?-?-?-?-?-?-?-?-?-?- 27w 3d 63.673 kg (+13.183 kg) 113/72 28 145 active No contractions or loss of fluids good movement GCT today 05/27/25 -?-?-?-?-?-?-?-?-?-?-?-?- 31w 3d 66.791 kg (+16.301 kg) 106/65 31 134 active No contractions loss of fluids or vaginal bleeding Passed glucose challenge test 139. 06/10/25 -?-?-?-?-?-?-?-?-?-?-?-?- 33w 3d 67.302 kg (+16.812 kg) 106/68 33 145 active Good movement no contractions no loss of fluids Discussed labor and recommended influenza and Tdap immunization. 06/24/25 -?-?-?-?-?-?-?-?-?-?-?-?- 35w 3d 69.173 kg (+18.683 kg) 103/68 absent cephalic 35 144 act leticia Reports good movement. Denies leaking, bleeding, contractions. Patient's last date of work will be June 26 and disability will start June 27 Disability will start June 27. Patient's last day to wear will be June 26. Discussed labor precautions. Kick count twice a day. GBS today. 07/02/25 -?-?-?-?-?-?-?-?-?-?-?-?- 36w 4d 68.946 kg (+18.456 kg) 105/71 occasional cephalic 36 145 active Reports good movement. Denies leaking, bleeding. Occasional contractions Discussed labor precautions. Kick count twice a day. Reviewed GBS results. Return in a week OB check 07/13/25 -?-?-?-?-?-?-?-?-?-?-?-?- 38w 1d 70.023 kg (+19.533 kg) 116/75 occasional cephalic 37 145 active Reports good movement. Denies leaking, bleeding, contractions Order breast pump. Note to the baby's father for time off and back bonding. Discussed labor precautions and kick count. Return in a week for OB check 07/21/25 -?-?-?-?-?-?-?-?-?-?-?-?- 39w 2d 69.967 kg (+19.477 kg) 110/69 occasional cephalic 38 145 active Reports good movement. Denies leaking, bleeding, contractions. Patient has no OB complaints Discussed labor precautions. Kick count reviewed with patient twice a day. I discussed comfort measures and signs symptoms of labor. Return in a week for OB check 07/29/25 -?-?-?-?-?-?-?-?-?-?-?-?- 40w 3d 69.967 kg (+19.477 kg) 118/73 occasional cephalic 39 145 active Reports good movement. Denies leaking or bleeding, occasional contraction and pressure. Patient to labor and delivery today for NST BPP and complete OB. Schedule induction for August 02. Kick count twice a day. And comfort measures. Return in a week OB check MERLYN Calculator Estimated Delivery Date Method Current WG Current Estimate 07/26/25 LMP (Certain) 43w 1d Other Estimates 07/26/25 Ultrasound #1 43w 1d 08/01/25 Ultrasound #2 42w 2d 07/26/25 Manual 43w 1d final merlyn: 07/05 11/25 Expected Delivery Route/Plan 29-year-old G1, P0 Anticipate Specific Issue/Plans labs performed. A +/antibody negative/rubella immune/RPR nonreactive/HIV negative/hepatitis B surface antigen negative/hep C negative/declined NIPT/ Pap within normal limits/ GC negative /Chlamydia negative/ urine culture negative All labs done at [facility] 1 hour glucose 139 RPR negative at 28 weeks hemoglobin 11.9. Notes Visit Date: 07/02/25 Last Updated by: Gaby Candelario CNM GBS- Visit Date: 06/24/25 Last Updated by: Gaby Candelario CNM OB panel: pap-,gc/ct-, A+,abs-, rpr;;nr, rub imm, hbsag-,HIV-, gc/ct-, HBSAG-.HC-, 1 hr gtt wnl, nipt- Visit Date: 06/10/25 Last Updated by: Merissa Malin ([facility])MD Schedule ultrasound for growth in 3 weeks. Recommended influenza, RSV and Tdap vaccines. Patient will think about this and if so we will schedule them at an outpatient pharmacy. Kick counts and labor precautions discussed. Group B strep culture between 35 and 36 weeks. Visit Date: 05/27/25 Last Updated by: Merissa Malin ([facility])MD Discussed labor. Patient will go with flow. Discussed pain control option including natural epidural or IV pain medication. Reviewed 1 hour glucose 139 hemoglobin 11.9 RPR negative. Father the baby present today. Follow-up in 2 weeks. Visit Date: 04/29/25 Last Updated by: Merissa Malin ([facility])MD Had structural survey at [facility] 04/23 and normal. Glucose challenge test ordered from [facility] today. Visit Date: 04/01/25 Last Updated by: Merissa Malin ([facility])MD Structural survey not done yet. It was ordered but not done. Ordered for [facility] HPI Interval History: 29-year-old 1 para 1 for OBI. Patient had a vaginal August 02, 2025. A baby girl that weighed 7 pounds 3. She is pumping and breast-feeding. Patient has good family support. She is happy, no depression. She is not sexually active and she thinks she would like to maybe try the IUD. No postp artum complaints Was or delivery considered high risk: No Delivery type: vaginal Was labor induced: no (Augmented) Gestational age at delivery (weeks): 41 Delivery date: 08/02/25 Delivering provider: vicky Delivery complications: No Delivery complications comment: none Is patient sexually active: No Contraception planned: IUD? Office Procedures [facility] LOC & Office Proc's Nursing/Assessment Patient Status: Established Patient OB Clinic Nursing Assessment: Medication Reconciliation and Vital Signs OB Clinic Coordination of Care: Complex Care and Chronic Disease 1-5, Education Complex Pt/Fam, Consent,records obtained, informed consent, Lab and Imaging orders, Results/Orders obtained and Staff clarify orders Established Patient Charge Established Patient Point Assignment: 100 Established Patient Point Charge: EP Level 3 (80-115) Antepartum Initial or Follow-up Antepartum Initial Visit: Yes Assessment & Plan Diagnosis / Problem List (1) 2 weeks follow-up: Status: Acute Plan Discussed control options including IUD. Increase fluids. Advised to put baby to breast every 4 hours. Continue prenatals. Discussed pumping, latching and breast-feeding positions return in 4 weeks for control and possibly IUD Care Reviewed delivery summary and any complications: Yes Uterus involuted to: 3 below Perineal / incision healing noted: Yes Screened for depression: Yes Depression counseling provided: No Discussed family planning & contraception: Yes Contraception planned: IUD? Counseling on safe resumption of sexual activity: Yes Counseling on gradual excercise: Yes Discussed and concerns (describe), provided support: Yes Referred to rail specialist: No Counseled on good nutrition, hydration, and self care: Yes Reviewed vaccine status: No Chronic & current problems reconciled on problem list: Yes Infant care discussed; questions answered: feeding Follow up: routine/prn Additional counseling & anticipatory guidance provided: Discussed IUD ParaGard side effects, effectiveness, danger signs symptoms and insertion. No sex 2 weeks prior to visit
[2025-08-17 15:43] VITALS: BP 107/75; PULSE 74; RESP 18; TEMP 36.2; O2SAT 98; BMI 25.2
== END 2025-08-17 15:59 | disposition home or self-care (01) ==
LOC: HODSOBC 15:37
PROVIDERS: Supervising Provider Advanced Practice Midwife; Visit Provider Advanced Practice Midwife
DX: Z39.2 Encounter for routine postpartum follow-up (principal); Z39.1 Encounter for care and examination of lactating mother; Z30.09 Encounter for other general counseling and advice on contraception; Z88.0 Allergy status to penicillin
CPT/HCPCS: 59425; 99213; G0463